=== PATIENT | female | born 1940 | race Caucasian/White ===

== ENCOUNTER 2016-12-16 03:00 | Inpatient (IN) | payer OTHER ==
--- NOTE | 2016-12-16 03:01 | PDOC ---
History of Present Illness - General History Source: Patient, Family Exam Limitations: No Limitations - History of Present Illness Initial Comments: 12/16/16 03:10 The patient is a 76 year old female with history of hypertension, diabetes, carotid stenosis, and cigarette smoking brought in by EMS from home for sudden onset shortness of breath that began tonight just prior to ED arrival. EMS was activated and the patient was placed on BIPAP. O2 sat on BIPAP is 81L on ED arrival. No fever or chills. No chest pain or lightheadedness. No abdominal pain , vomiting, or diarrhea. Patient is not able to provide remainder of history secondary to clinical condition. PCP: Dr. Bharathi Gillette Bi Lead: Dr. Ghosh <Jenifer Mederos - Last Filed: 12/16/16 04:33> - General History Source: Family <Tello Leonard - Last Filed: 12/16/16 05:01> - General Stated Complaint: DIFFICULTY BREATHING Time Seen by Provider: 12/16/16 03:01 Past History <Jenifer Mederos - Last Filed: 12/16/16 04:33> - Psycho/Social/Smoking Cessation Hx Anxiety: No Smoking History: Current some day smoker Number of Cigarettes Smoked Daily: 2 <Tello Leonard - Last Filed: 12/16/16 05:01> - Past Medical History Allergies/Adverse Reactions: Allergies Allergy/AdvReac Type Severity Reaction Status Date / Time No Known Allergies Allergy Verified 03/11/14 09:18 Home Medications: Ambulatory Orders Hydralazine HCl 10 mg PO DAILY 12/16/16 Losartan 50Mg/Hctz 12.5MG [Hyzaar -] 1 tab PO DAILY 12/16/16 Metoprolol Succinate [Toprol Xl -] 25 mg PO DAILY 12/16/16 Omeprazole 10 mg PO DAILY 12/16/16 Review of Systems - Review of Systems Able to Perform ROS?: No Comments:: 12/16/16 03:13 Patient is unable to provide ROS secondary to clinical condition. <Jenifer Mederos - Last Filed: 12/16/16 04:33> *Physical Exam - Vital Signs Last Vital Signs Temp Pulse Resp BP Pulse Ox 116 H 45 H 195/110 81 L 12/16/16 03:07 12/16/16 03:07 12/16/16 03:07 12/16/16 03:07 - Physical Exam Comments: 12/16/16 03:13 GENERAL: Awake, alert, and fully oriented. Somnolent. In respiratory distress. Not answering questions. HEAD: No signs of trauma EYES: PERRLA, EOMI, sclera anicteric, conjunctiva clear ENT: Auricles normal inspection, hearing grossly normal, nares patent, oropharynx clear without exudates. Moist mucosa NECK: Normal ROM, supple, no lymphadenopathy, JVD, or masses LUNGS: Breathing with supraclavicular contractions. Diffuse bilateral rales. HEART: Regular rate and rhythm, normal S1 and S2, no murmurs, rubs or gallops ABDOMEN: Soft, nontender, normoactive bowel sounds. No guarding, no rebound. No masses EXTREMITIES: Normal range of motion, no edema. No clubbing or cyanosis. No cords, erythema, or tenderness NEUROLOGICAL: Cranial nerves II through XII grossly intact. Normal speech, normal gait SKIN: Warm, Dry, normal turgor, no rashes or lesions noted. <Jenifer Mederos - Last Filed: 12/16/16 04:33> Heart Score/ECG Review #1 12/16/16 03:30 EKG obtained 3:14. Sinus tachycardia at 109 bpm. Anteroseptal infarct, age undetermined. Abnormal EKG. <Jenifer Mederos - Last Filed: 12/16/16 04:33> ED Treatment Course - LABORATORY CBC & Chemistry Diagram: 12/16/16 03:00 12/16/16 03:00 <Jenifer Mederos - Last Filed: 12/16/16 04:33> - LABORATORY CBC & Chemistry Diagram: 12/16/16 03:00 12/16/16 03:00 <Tello Leonard - Last Filed: 12/16/16 05:01> Medical Decision Making - Critical Care Time Total Critical Care Time (minutes): 35 Critical Care Statement: The care of this patient involved high complexity decision making to prevent further life threatening deterioration of the patient 's condition and/or to evalute & treat vital organ system(s) failure or risk of failure. - Medical Decision Making 12/16/16 04:00. My preliminary chest x-ray interpretation shows bilateral pulmonary congestion, increased markings, and cardiomegaly. Paged [facility] regarding admission. 12/16/16 04:33 Case discussed with patient's PCP, Dr. Turner Gillette, who requested the patient be admitted under Dr. Dowd. Placed call to Dr. Dowd, who agreed to admission. <Jenifer Mederos - Last Filed: 12/16/16 04:33> - Medical Decision Making 12/16/16 04:23 Dr. Leonard: The scribe's documentation has been prepared under my direction and personally reviewed by me in its entirery. I confirm that the note above accurately reflects all work, treatment, procedures, and medical decision making performed by me. 12/16/16 04:23 Pt presented acutely SOB. Clinically in CHF. No previous history of CHF. Troponin 0.02. Pt given a total of 100mg Lasix. Pt starting to diuresis. Spoke to pt pcp. Asked to admit pt to ICU. 12/16/16 05:00 Spoke to Carli Grande NP. There is a bed available in ICU <Tello Leonard - Last Filed: 12/16/16 05:01> *DC/Admit/Observation/Transfer - Attestations Scribe Attestion: 12/16/16 03:15 Documentation prepared by Jenifer Mederos, acting as medical historian for Tello Leonard DO. <Jenifer Mederos - Last Filed: 12/16/16 04:33> - Discharge Dispostion Admit: Yes <Tello Leonard - Last Filed: 12/16/16 05:01> Diagnosis at time of Disposition: CHF (congestive heart failure) Qualifiers: Congestive heart failure type: unspecified congestive heart failure type Congestive heart failure chronicity: acute Qualified Code(s): I50.9 - Heart failure, unspecified Dyspnea Qualifiers: Dyspnea type: shortness of breath Qualified Code(s): R06.02 - Shortness of breath - Referrals Referrals: Bharathi Gillette MD [Primary Care Provider] -
[2016-12-16] MEDS ORDERED: FUROSEMIDE 40 MG/4 ML INJECTABLE VIAL IVPUSH ONE ×2 (03:06→04:01)
[2016-12-16] MEDS ORDERED: FUROSEMIDE 40 MG/4 ML INJECTABLE VIAL ONE ×2 (03:06→04:02)
[2016-12-16] MEDS ORDERED: NITROGLYCERIN 2% OINTMENT - 1GM PACKET TD ONE (03:06)
[2016-12-16 03:15] LABS: BASOPHIL 0.8 % (0-2.0); EOSINOPHIL 1.6 % (0-4.5); MCH 29.4 pg (25.7-33.7); MCHC 31.8 g/dl (32.0-36.0); MEAN CELL VOLUME 92.5 fl (80-96); MEAN PLT VOLUME 8.6 fl (7.5-11.1); NEUTROPHILS 46.7 % (42.8-82.8); PLATELET COUNT 212 K/MM3 (134-434); RDW 15.5 % (11.6-15.6); WHITE BLOOD COUNT 13.9 K/mm3 (4.0-10.0)
[2016-12-16 03:25] LABS: INR 1.03 (0.82-1.09); PROTHROMBIN TIME (PATIENT) 11.3 SEC (9.98-11.88)
[2016-12-16 03:28] LABS: URINE APPEARANCE CLEAR; URINE BILIRUBIN NEGATIVE (NEGATIVE); URINE BLOOD NEGATIVE (NEGATIVE); URINE COLOR LTYELLOW; URINE GLUCOSE (UA) NEGATIVE (NEGATIVE); URINE KETONE NEGATIVE (NEGATIVE); URINE LEUK ESTERASE NEGATIVE (NEGATIVE); URINE NITRITE NEGATIVE (NEGATIVE); URINE UROBILINOGEN NEGATIVE E.U./dl (0.2-1.0)
[2016-12-16 03:40] LABS: URINE PROTEIN 3+ (NEGATIVE)
[2016-12-16 03:41] LABS: ALBUMIN 3.4 g/dl (3.4-5.0); ANION GAP 12 (8-16); BILIRUBIN,TOTAL 0.4 mg/dL (0.2-1.0); CO2 24 mmol/L (21-32); CREATININE 1.1 mg/dL (0.55-1.02); GLUCOSE,RANDOM 220 mg/dL (74-106); MAGNESIUM 1.5 mg/dL (1.8-2.4); SGOT/AST 51 U/L (15-37); SGPT/ALT 40 U/L (12-78); TOT PROT 6.9 g/dl (6.4-8.2)
[2016-12-16 03:42] LABS: URINE HYALINE CAST 1 /lpf; URINE MUCUS RARE; URINE RBC 7 /hpf (0-3); URINE WBC 14 /hpf (3-5)
[2016-12-16 03:44] LABS: ALK PHOS 58 U/L (45-117); TROPONIN I 0.02 ng/ml (0.00-0.05)
[2016-12-16 03:49] LABS: ARTERIAL BLD GAS O2 SATURATION 99.3 % (90-98.9); ARTERIAL BLOOD GAS BASE EXCESS -3.8 meq/l (-2-2); ARTERIAL BLOOD GAS HCO3 22.5 meq/L (22-26); ARTERIAL BLOOD GAS pH 7.29 (7.35-7.45)
[2016-12-16 03:51] LABS: ALLENS TEST POSITIVE; ART PUNCT SITE RIGHT BRACHIAL; LPM/O2% 100; METHEMOGLOBIN 0.8 % (0.4-1.5); PT. ON O2? YES
[2016-12-16 03:52] LABS: TYPE OF O2 BIPAP; VENT RATE 14; VT/PRESS 16/4
[2016-12-16 03:54] LABS: ACETONE SERUM NEGATIVE (NEGATIVE)
[2016-12-16] MEDS ORDERED: ALBUTEROL SO4 0.083% IH SOL 2.5 MG/3 ML VIAL.NEB. NEB PRN (05:50)
[2016-12-16 06:45] VITALS: BMI 34.6
[2016-12-16] MEDS ORDERED: MAGNESIUM SULF 50% (8.12 MEQ/2 ML-1 GM VIAL) IVPB ONE (09:09)
[2016-12-16] MEDS ORDERED: PNEUMOC 13-VAL CONJ-DIP CRM/PF 0.5 ML DISP.SYRIN IM ONE (09:29)
[2016-12-16] MEDS ORDERED: ALBUTEROL SO4 2.5/IPRATROPIUM 0.5 INH SOL 3 ML VIAL.NEB. NEB SCH (10:00)
[2016-12-16] MEDS ORDERED: FUROSEMIDE 40 MG/4 ML INJECTABLE VIAL IVPUSH SCH (10:00)
--- NOTE | 2016-12-16 11:34 | PN ---
Teaching Attending Note Name of Resident: Oni Medina ATTENDING PHYSICIAN STATEMENT I saw and evaluated the patient. I reviewed the resident's note and discussed the case with the resident. I agree with the resident's findings and plan as documented. SUBJECTIVE: 76 F hypertension, diabetes, carotid stenosis, and cigarette smoking. According to daughter, patient had a recent URI and was prescribed Augmentin, which she only took for a few days. Brought in by EMS from home due to sudden onset shortness of breath. Due to severe respiratory distress she required treatment with NIPPV, which stabilized her breathing. No travel history or sick contacts. No fever or chills. No chest pain abdominal pain, vomiting, or diarrhea. Intake & Output 12/13/16 12/14/16 12/15/16 12/16/16 22:59 23:59 23:59 23:59 Output Total 850 Balance -850 Weight 189 lb 8 oz Last Vital Signs Temp Pulse Resp BP Pulse Ox 98.2 F 70 20 136/49 98 12/16/16 10:00 12/16/16 10:00 12/16/16 10:00 12/16/16 10:00 12/16/16 09:14 Active Medications Albuterol Sulfate (Ventolin 0.083% Nebulizer Soln -) 1 amp NEB Q4H PRN PRN Reason: SHORT OF BREATH/WHEEZING Albuterol/Ipratropium (Duoneb -) 1 amp NEB BID [facility] Last Admin: 12/16/16 09:14 Dose: 1 amp Furosemide (Lasix Injection -) 40 mg IVPUSH DAILY [facility] Last Admin: 12/16/16 09:43 Dose: 40 mg Pneumococcal 13-Valent Conj Vacc (Prevnar 13 Syringe -) 0.5 ml IM .ONCE ONE Stop: 12/16/16 09:30 GENERAL: Awake, alert, on NIPPV HEAD: No signs of trauma EYES: PERRLA, EOMI, sclera anicteric, conjunctiva clear ENT: Moist mucosa NECK: Normal ROM, supple, no lymphadenopathy, JVD, or masses LUNGS: Bibasilar rales, no wheezing HEART: Regular rate and rhythm, normal S1 and S2, no murmurs, rubs or gallops ABDOMEN: Soft, nontender, normoactive bowel sounds. No guarding, no rebound. No masses EXTREMITIES: Normal range of motion, no edema. No clubbing or cyanosis. No cords, erythema, or tenderness NEUROLOGICAL: awake and alert, non-focal SKIN: Warm, Dry, normal turgor, no rashes or lesions noted. IMP: Acute Hypoxemic/Hypercapneic Respiratory Failure due to Decompensated CHF Recent URI -> probably viral Do not suspect PNA Above history PLAN: Lasix NIPPV as needed BD TX Monitor off ABX for now O2 as needed Daily weight Strict I&O Follow cardiac enzymes Telemetry monitoring Thank you. Dr Parekh CCTime 35"
[2016-12-16] MEDS ORDERED: HEPARIN NA (PORCINE) 5,000 UNITS/ML 1ML VIAL SQ SCH (11:45)
[2016-12-16] MEDS: PANTOPRAZOLE 40 MG TABLET (FP) PO SCH (12:19)
--- NOTE | 2016-12-16 12:35 | EKG ---
Test Reason : Blood Pressure : / mmHG Vent. Rate : 109 BPM Atrial Rate : 109 BPM P-R Int : 162 ms QRS Dur : 102 ms QT Int : 350 ms P-R-T Axes : 070 080 050 degrees QTc Int : 471 ms SINUS TACHYCARDIA ANTEROSEPTAL INFARCT , AGE UNDETERMINED ABNORMAL ECG WHEN COMPARED WITH ECG OF 10-NOV-2005 08:27, VENT. RATE HAS INCREASED BY 55 BPM ANTEROSEPTAL INFARCT IS NOW PRESENT ST ELEVATION NOW PRESENT IN ANTERIOR LEADS Confirmed by LUIS MARSHALL MD ([id number]) on 12/16/2016 12:35:08 PM Referred By: Confirmed By:LUIS MARSHALL MD
--- NOTE | 2016-12-16 12:52 | CONSULT ---
Addendum entered and electronically signed by Oni Medina RES 12/16/16 14:39 : case discussed with cardiology patient has acute diastolic/systolic heart failure with subendocardial ischemic injury. get TSH, lipid profile, trend trop i continue with aspirin, lipitor, toprol xl, lasix. patient is responding to lasix. Breathing has improved. Addendum entered and electronically signed by Oni Medina RES 12/16/16 14:19 : Trop I elevated will give her 324mg aspirin. start her on heparin drip and nitro drip will give her lipitor 40mg trend trop I case discussed with Dr Dowd Original Note: Consultation: REQUESTING PROVIDER: CONSULT REQUEST: We have been asked to medically evaluate this patient for ( specify). HISTORY OF PRESENT ILLNESS: 76 F hypertension, diabetes, carotid stenosis, and cigarette smoking. Came to ed because of shortness of breath. as per daughter pateint has URI from 2 week. but yesterday her difficulty incresed and she was brought to ED. In ED patient received 100mg of Lasix and was started on bipap. Now patient states that she feels better and her breathing has improved. Patient was taken off from BIPAP and started on nasal canula. Maintaing a saturation of 99 % on 3 No fever or chills. No chest pain abdominal pain, vomiting, or diarrhea. PMH; HTN, HLD, carotid stenosis REVIEW OF SYSTEMS: CONSTITUTIONAL: Absent: fever, chills, diaphoresis, HEENT: Absent: rhinorrhea, nasal congestion, throat pain, throat swelling, difficulty swallowing, mouth swelling, ear pain, eye pain, visual changes CARDIOVASCULAR: Absent: chest pain, syncope, palpitations, irregular heart rate, lightheadedness , peripheral edema RESPIRATORY: Present cough : Absent cough, dyspnea with exertion, orthopnea, wheezing, stridor, hemoptysis GASTROINTESTINAL: Absent: abdominal pain, abdominal distension, nausea, vomiting, diarrhea, constipation, GENITOURINARY: Absent: dysuria, frequency, urgency, MUSCULOSKELETAL: Absent: myalgia, arthralgia, joint swelling, SKIN: Absent: itching, pallor HEMATOLOGIC/IMMUNOLOGIC: Absent: easy bleeding, easy bruising, ENDOCRINE: Absent: unexplained weight gain, unexplained weight loss, h NEUROLOGIC: Absent: headache, focal weakness or paresthesias, dizziness, PSYCHIATRIC: Absent: anxiety, depression, suicidal or homicidal ideation, hallucinations. PHYSICAL EXAMINATION Vital Signs - 24 hr 12/16/16 12/16/16 12/16/16 05:33 06:15 06:37 Temperature 97.3 F L 97 F L Pulse Rate 75 Pulse Rate [ 77 Apical] Respiratory 22 19 Rate Blood Pressure 153/61 Blood Pressure 127/55 [Left Arm] O2 Sat by Pulse 100 100 98 Oximetry (%) 12/16/16 12/16/16 12/16/16 08:00 09:00 09:14 Temperature Pulse Rate 72 68 Pulse Rate [ Apical] Respiratory 18 Rate Blood Pressure 150/67 Blood Pressure [Left Arm] O2 Sat by Pulse 98 98 Oximetry (%) 12/16/16 12/16/16 10:00 11:43 Temperature 98.2 F Pulse Rate 70 66 Pulse Rate [ Apical] Respiratory 20 16 Rate Blood Pressure 136/49 129/69 Blood Pressure [Left Arm] O2 Sat by Pulse 98 Oximetry (%) GENERAL: Awake, alert, and fully oriented, in no acute distress. HEAD: Normal with no signs of trauma. EYES: Pupils equal, round and reactive to light, extraocular movements intact, EARS, NOSE, THROAT: Moist mucous membranes. NECK: Normal range of motion, supple without lymphadenopathy, JVD distended , or masses. LUNGS: Breath sounds equal, clear to auscultation bilaterally. No wheezes, and mild bibasilar rales No accessory muscle use. HEART: s1s2 normal ABDOMEN: Soft, nontender, not distended, normoactive bowel sounds, no guarding, no rebound, no masses. hepetojuglar reflex present MUSCULOSKELETAL: No CVA tenderness. UPPER EXTREMITIES: 2+ pulses, warm, well-perfused. No cyanosis. Cap refill <2 seconds. No peripheral edema. LOWER EXTREMITIES: 2+ pulses, warm, well-perfused. No calf tenderness. No peripheral edema. NEUROLOGICAL: Cranial nerves II-XII grossly intact PSYCHIATRIC: Cooperative. Good eye contact. Appropriate mood and affect. SKIN: Warm, dry, normal turgor, Active Medications Generic Name Dose Route Start Last Admin Trade Name Freq PRN Reason Stop Dose Admin Albuterol Sulfate 1 amp 12/16/16 05:50 Ventolin 0.083% Nebulizer Soln - NEB Q4H PRN SHORT OF BREATH/WHEEZING Albuterol/Ipratropium 1 amp 12/16/16 14:00 Duoneb - NEB QIDR [facility] Chlorhexidine Gluconate 1 applic 12/16/16 22:00 Hibiclens For Decolonization - TP HS [facility] Furosemide 40 mg 12/16/16 14:00 Lasix Injection - IVPUSH BIDLASIX [facility] Heparin Sodium (Porcine) 5,000 unit 12/16/16 11:45 12/16/16 12:19 Heparin - SQ 5,000 unit BID [facility] Administration Insulin Aspart 0 units 12/16/16 16:30 Novolog Vial SQ ACHS [facility] Protocol Losartan Potassium 50 mg 12/17/16 10:00 Cozaar - PO DAILY [facility] Metoprolol Succinate 25 mg 12/17/16 10:00 Toprol Xl - PO DAILY [facility] Mupirocin 1 applic 12/16/16 22:00 Bactroban Ointment (For Decolonization) - NS 12/21/16 21:59 BID [facility] Pantoprazole Sodium 40 mg 12/16/16 11:45 12/16/16 12:19 Protonix - PO 40 mg DAILY [facility] Administration Pneumococcal 13-Valent Conj Vacc 0.5 ml 12/16/16 09:29 Prevnar 13 Syringe - IM 12/16/16 09:30 .ONCE ONE ASSESSMENT/PLAN: Acute Hypoxemic/Hypercapneic Respiratory Failure due to Decompensated CHF IV lasix BIPAP as needed maintaing a sturation of 99% on 3L monitor vitals monitor daily weight monitor intake/ output oxygen as needed follow ECHO, cardiac enzymes Cardiology consult HTN on metoprolol and losartan Fluid; orally allowed electrolyte: hypomagnesemia, IV 2gm mg given nutrition: salt restricted diet DVT pro on heparin gi pro ; on protonix Dispo: admit in icu Visit type - Emergency Visit Emergency Visit: Yes ED Registration Date: 12/16/16 Care time: The patient presented to the Emergency Department on the above date and was hospitalized for further evaluation of their emergent condition. - New Patient This patient is new to me today: Yes Date on this admission: 12/16/16 - Critical Care Critical Care patient: Yes Total Critical Care Time (in minutes): 45 Critical Care Statement: The care of this patient involved high complexity decision making to prevent further life threatening deterioration of the patient 's condition and/or to evalute & treat vital organ system(s) failure or risk of failure.
[2016-12-16] MEDS: ALBUTEROL SO4 2.5/IPRATROPIUM 0.5 INH SOL 3 ML VIAL.NEB. NEB SCH ×2 (13:51→18:07)
[2016-12-16 14:01] LABS: TROPONIN I 1.01 ng/ml (0.00-0.05)
[2016-12-16] MEDS ORDERED: ASPIRIN 81 MG CHEWABLE TABLETS PO ONE (14:13)
[2016-12-16] MEDS ORDERED: HEPARIN INFUSION - 500 ML IVPB SCH (14:15)
[2016-12-16] MEDS ORDERED: HEPARIN NA (PORCINE) 5,000 UNITS/ML 1ML VIAL IVPUSH PRN ×2 (14:15)
[2016-12-16] MEDS ORDERED: ATORVASTATIN CA 40 MG TABLET (FP) PO ONE (14:23)
[2016-12-16] MEDS: FUROSEMIDE 40 MG/4 ML INJECTABLE VIAL IVPUSH SCH (14:31)
[2016-12-16] MEDS ORDERED: METOPROLOL SUCCINATE 25 MG TAB.SR.24H (FP) ONE (14:49)
[2016-12-16] MEDS ORDERED: METOPROLOL SUCCINATE 25 MG TAB.SR.24H (FP) PO ONE (14:52)
[2016-12-16 15:03] LABS: MAGNESIUM 2.1 mg/dL (1.8-2.4)
[2016-12-16 15:26] LABS: INR 1.08 (0.82-1.09); PROTHROMBIN TIME (PATIENT) 11.9 SEC (9.98-11.88)
[2016-12-16 15:28] LABS: ACTIVATED PTT 25.8 SECONDS (26.9-34.4)
[2016-12-16 15:46] LABS: THYROID STIMULATING HORMONE 2.39 uIU/ml (0.358-3.74)
[2016-12-16] MEDS: INSULIN (NOVOLOG) ASPART 100 UNITS/ML 10ML VIAL SQ SCH ×3 (17:46→21:39)
--- NOTE | 2016-12-16 19:20 | HP ---
Admitting History and Physical - Primary Care Physician PCP: Christiano Pichardo - Admission Chief Complaint: DYSPNEA/CHEST PAIN History of Present Illness: The patient is a 76 year old female with history of hypertension, diabetes, carotid stenosis, and cigarette smoking brought in by EMS from home for sudden onset shortness of breath that began tonight just prior to ED arrival. EMS was activated and the patient was placed on BIPAP. O2 sat on BIPAP is 81L on ED arrival. No fever or chills. POSITIVE chest pain No lightheadedness. No abdominal pain, vomiting, or diarrhea. Patient is not able to provide remainder of history secondary to clinical condition. History Source: Patient, Medical Record - Past Medical History Cardiovascular: Yes: Aortic Stenosis, CAD, HTN, Other - Smoking History Smoking history: Current some day smoker Aproximately how many cigarettes per day: 2 - Alcohol/Substance Use Hx Alcohol Use: No Home Medications - Allergies Allergies/Adverse Reactions: Allergies Allergy/AdvReac Type Severity Reaction Status Date / Time No Known Allergies Allergy Verified 03/11/14 09:18 - Home Medications Home Medications: Ambulatory Orders Hydralazine HCl 10 mg PO DAILY 12/16/16 Losartan 50Mg/Hctz 12.5MG [Hyzaar -] 1 tab PO DAILY 12/16/16 Metoprolol Succinate [Toprol Xl -] 25 mg PO DAILY 12/16/16 Omeprazole 10 mg PO DAILY 12/16/16 Review of Systems - Review of Systems Constitutional: reports: Weakness Eyes: reports: No Symptoms HENT: reports: No Symptoms Neck: reports: No Symptoms Cardiovascular: reports: Chest Pain, Shortness of Breath Respiratory: reports: Cough, SOB Gastrointestinal: reports: No Symptoms Genitourinary: reports: No Symptoms Musculoskeletal: reports: No Symptoms Integumentary: reports: No Symptoms Neurological: reports: No Symptoms Endocrine: reports: No Symptoms Hematology/Lymphatic: reports: No Symptoms Physical Examination Vital Signs: Vital Signs Temperature 97.6 F 12/16/16 18:00 Pulse Rate 68 12/16/16 18:00 Respiratory Rate 18 12/16/16 18:00 Blood Pressure 140/75 12/16/16 18:00 O2 Sat by Pulse Oximetry (%) 98 12/16/16 10:00 Constitutional: Yes: Moderate Distress Eyes: Yes: WNL HENT: Yes: WNL Neck: Yes: WNL Cardiovascular: Yes: WNL, Murmur Respiratory: Yes: SOB on Exertion Gastrointestinal: Yes: WNL Breast(s): Yes: WNL Musculoskeletal: Yes: WNL Extremities: Yes: WNL Edema: No Peripheral Pulses WNL: Yes Integumentary: Yes: WNL Wound/Incision: Yes: Clean/Dry Neurological: Yes: WNL ...Motor Strength: WNL Psychiatric: Yes: WNL Problem List - Problems (1) CHF (congestive heart failure) Code(s): I50.9 - HEART FAILURE, UNSPECIFIED Qualifiers: Congestive heart failure type: unspecified congestive heart failure type Congestive heart failure chronicity: acute Qualified Code(s): I50.9 - Heart failure, unspecified (2) Dyspnea Code(s): R06.00 - DYSPNEA, UNSPECIFIED Qualifiers: Dyspnea type: shortness of breath Qualified Code(s): R06.02 - Shortness of breath Assessment/Plan FAMILY WOULD LIKE TO HAVE THEIR MOM TRANSFERRED TO A [facility]ERTI[facility] CENTER THEY PREFER [facility] IN [place]. I DISCUSSED WITH THE ATTENDING DR CHRISTIANO PICHARDO WHO IS IN AGREEMENT. I SPOKE WITH DR MEMO GORDON FROM [facility] AND HE WILL TRY TO TRANSFER THE PATIENT FOR FURTHER WORKUP. I SPOKE TO THE NURSE IN THE ICU BECAUSE CARDIOLOGY FROM DR DE'S OFFICE HAS NOT SEEN HER YET FOR INITIAL CONSULTATION SO WE CAN NOTIFY THEM THAT SHE WOULD LIKE TO BE TRANSFERRED. MONITOR VITALS ECHO DVT PROPHYLAXIS NITRO DRIP CARDIAC ENZYMES TO MONITOR
[2016-12-16] MEDS ORDERED: BENZOCAINE/MENTH/CETYLPYRD CL 1 EACH LOZENGE MM PRN (21:18)
[2016-12-16] MEDS: HEPARIN NA (PORCINE) 5,000 UNITS/ML 1ML VIAL SQ SCH (21:29)
[2016-12-16] MEDS: MUPIROCIN 2% TOPICAL OINTMENT FOR DECOLONIZATION NS SCH (21:29)
[2016-12-16] MEDS ORDERED: CHLORHEXIDINE GLUCONATE 4% CLEANSER FOR DECOLONIZATION TP SCH (22:00)
[2016-12-16 23:58] LABS: TROPONIN I 0.5 ng/ml (0.00-0.05)
[2016-12-17] MEDS: ALBUTEROL SO4 2.5/IPRATROPIUM 0.5 INH SOL 3 ML VIAL.NEB. NEB SCH ×2 (00:05→06:40)
[2016-12-17] MEDS ORDERED: HEMOQUE TEST 1 EACH EACH ONE (05:15)
[2016-12-17 06:03] LABS: BASOPHIL 0.4 % (0-2.0); EOSINOPHIL 1.1 % (0-4.5); MCH 30.7 pg (25.7-33.7); MEAN CELL VOLUME 90.4 fl (80-96); MEAN PLT VOLUME 9.1 fl (7.5-11.1); NEUTROPHILS 73.6 % (42.8-82.8); PLATELET COUNT 150 K/MM3 (134-434)
[2016-12-17 06:15] LABS: BILIRUBIN,TOTAL 0.4 mg/dL (0.2-1.0); MAGNESIUM 1.8 mg/dL (1.8-2.4); PHOSPHOROUS 3.6 mg/dL (2.5-4.9); TOT PROT 5.9 g/dl (6.4-8.2)
[2016-12-17 06:18] LABS: TROPONIN I 0.41 ng/ml (0.00-0.05)
[2016-12-17] MEDS: FUROSEMIDE 40 MG/4 ML INJECTABLE VIAL IVPUSH SCH (07:21)
[2016-12-17] MEDS: INSULIN (NOVOLOG) ASPART 100 UNITS/ML 10ML VIAL SQ SCH ×2 (07:21→12:15)
[2016-12-17 07:43] LABS: ARTERIAL BLD GAS O2 SATURATION 97.4 % (90-98.9); ARTERIAL BLOOD GAS BASE EXCESS 5.1 meq/l (-2-2); ARTERIAL BLOOD GAS PO2 91.5 mmHg (70-100); ARTERIAL BLOOD GAS pH 7.45 (7.35-7.45)
[2016-12-17 07:44] LABS: ALLENS TEST POSITIVE; ART PUNCT SITE RIGHT RADIAL; LPM/O2% 3 LPM; PT. ON O2? YES
[2016-12-17 07:45] LABS: ARTERIAL BLOOD GAS HCO3 29.3 meq/L (22-26)
--- NOTE | 2016-12-17 09:25 | PN ---
Progress Note, Physician History of Present Illness: C/O COUGH SOB BETTER NO CP THIS AM NOTED FAMILY WANT PT TRANSFERRED TO [facility] AWARE--INFO GIVEN BY RESIDENT - Current Medication List Current Medications: Active Medications Albuterol Sulfate (Ventolin 0.083% Nebulizer Soln -) 1 amp NEB Q4H PRN PRN Reason: SHORT OF BREATH/WHEEZING Albuterol/Ipratropium (Duoneb -) 1 amp NEB QIDR [facility] Last Admin: 12/17/16 06:40 Dose: 1 amp Aspirin (Asa -) 81 mg PO DAILY [facility] Atorvastatin Calcium (Lipitor -) 40 mg PO HS [facility] Benzocaine/Menthol (Cepacol Lozenge -) 1 each MM PRN PRN PRN Reason: SORE THROAT Last Admin: 12/16/16 22:02 Dose: 1 each Chlorhexidine Gluconate (Hibiclens For Decolonization -) 1 applic TP HS [facility] Last Admin: 12/16/16 21:29 Dose: 1 applic Furosemide (Lasix Injection -) 40 mg IVPUSH BIDLASIX [facility] Last Admin: 12/17/16 07:21 Dose: 40 mg Heparin Sodium (Porcine) (Heparin -) 5,000 unit SQ BID [facility] Last Admin: 12/16/16 21:29 Dose: 5,000 unit Insulin Aspart (Novolog Vial) 0 units SQ ACHS [facility] PRN Reason: Protocol Last Admin: 12/17/16 07:21 Dose: Not Given Losartan Potassium (Cozaar -) 50 mg PO DAILY [facility] Metoprolol Succinate (Toprol Xl -) 25 mg PO DAILY [facility] Mupirocin (Bactroban Ointment (For Decolonization) -) 1 applic NS BID [facility] Stop: 12/21/16 21:59 Last Admin: 12/16/16 21:29 Dose: 1 applic Pantoprazole Sodium (Protonix -) 40 mg PO DAILY [facility] Last Admin: 12/16/16 12:19 Dose: 40 mg Pneumococcal 13-Valent Conj Vacc (Prevnar 13 Syringe -) 0.5 ml IM .ONCE ONE Stop: 12/16/16 09:30 - Objective Vital Signs: Vital Signs Temperature 98.1 F 12/17/16 08:00 Pulse Rate 79 12/17/16 08:00 Respiratory Rate 18 12/17/16 08:00 Blood Pressure 153/55 12/17/16 08:00 O2 Sat by Pulse Oximetry (%) 98 12/16/16 21:00 Cardiovascular: Yes: Regular Rate and Rhythm Respiratory: Yes: Diminished, On Nasal O2 Gastrointestinal: Yes: Normal Bowel Sounds, Soft Edema: No Labs: CBC, BMP 12/17/16 05:10 12/17/16 05:10 INR, PTT INR 1.08 (0.82-1.09) 12/16/16 14:45 <Christiano Dowd - Last Filed: 12/17/16 09:39> - Current Medication List Current Medications: Active Medications Albuterol Sulfate (Ventolin 0.083% Nebulizer Soln -) 1 amp NEB Q4H PRN PRN Reason: SHORT OF BREATH/WHEEZING Albuterol/Ipratropium (Duoneb -) 1 amp NEB QIDR [facility] Last Admin: 12/17/16 06:40 Dose: 1 amp Aspirin (Asa -) 81 mg PO DAILY [facility] Last Admin: 12/17/16 10:06 Dose: 81 mg Atorvastatin Calcium (Lipitor -) 40 mg PO HS [facility] Benzocaine/Menthol (Cepacol Lozenge -) 1 each MM PRN PRN PRN Reason: SORE THROAT Last Admin: 12/16/16 22:02 Dose: 1 each Chlorhexidine Gluconate (Hibiclens For Decolonization -) 1 applic TP HS [facility] Last Admin: 12/16/16 21:29 Dose: 1 applic Furosemide (Lasix Injection -) 40 mg IVPUSH BIDLASIX [facility] Last Admin: 12/17/16 07:21 Dose: 40 mg Heparin Sodium (Porcine) (Heparin -) 5,000 unit SQ BID [facility] Last Admin: 12/17/16 10:06 Dose: 5,000 unit Insulin Aspart (Novolog Vial) 0 units SQ ACHS [facility] PRN Reason: Protocol Last Admin: 12/17/16 12:15 Dose: Not Given Losartan Potassium (Cozaar -) 50 mg PO DAILY [facility] Last Admin: 12/17/16 10:06 Dose: 50 mg Metoprolol Succinate (Toprol Xl -) 25 mg PO DAILY [facility] Last Admin: 12/17/16 10:06 Dose: 25 mg Mupirocin (Bactroban Ointment (For Decolonization) -) 1 applic NS BID [facility] Stop: 12/21/16 21:59 Last Admin: 12/17/16 10:07 Dose: 1 applic Pantoprazole Sodium (Protonix -) 40 mg PO DAILY [facility] Last Admin: 12/17/16 10:06 Dose: 40 mg Pneumococcal 13-Valent Conj Vacc (Prevnar 13 Syringe -) 0.5 ml IM .ONCE ONE Stop: 12/16/16 09:30 - Objective Vital Signs: Vital Signs Temperature 98 F 12/17/16 12:00 Pulse Rate 84 12/17/16 12:00 Respiratory Rate 22 12/17/16 12:00 Blood Pressure 149/47 12/17/16 12:00 O2 Sat by Pulse Oximetry (%) 99 12/17/16 11:43 Constitutional: Yes: No Distress, Calm Labs: CBC, BMP 12/17/16 05:10 12/17/16 05:10 INR, PTT INR 1.08 (0.82-1.09) 12/16/16 14:45 <Hai Medeiros - Last Filed: 12/17/16 12:28> Problem List - Problems (1) CHF (congestive heart failure) Assessment/Plan: IV LASIX ECHO ASA Code(s): I50.9 - HEART FAILURE, UNSPECIFIED Qualifiers: Congestive heart failure type: unspecified congestive heart failure type Congestive heart failure chronicity: acute Qualified Code(s): I50.9 - Heart failure, unspecified (2) Dyspnea Assessment/Plan: IMPROVING ON DIURETICS NEBS Code(s): R06.00 - DYSPNEA, UNSPECIFIED Qualifiers: Dyspnea type: shortness of breath Qualified Code(s): R06.02 - Shortness of breath (3) Diabetes Assessment/Plan: BGM Code(s): E11.9 - TYPE 2 DIABETES MELLITUS WITHOUT COMPLICATIONS (4) HTN (hypertension) Assessment/Plan: MONITOR ON CURRENT MEDS Code(s): I10 - ESSENTIAL (PRIMARY) HYPERTENSION (5) CAD (coronary artery disease) Assessment/Plan: STATIN B-JULIETH ASA Code(s): I25.10 - ATHSCL HEART DISEASE OF [place] CORONARY ARTERY W/O ANG PCTRS (6) Carotid stenosis Assessment/Plan: CAROTID DUPLEX STATIN Code(s): I65.29 - OCCLUSION AND STENOSIS OF UNSPECIFIED CAROTID ARTERY (7) Aortic valve disease Assessment/Plan: ECHO Code(s): I35.9 - NONRHEUMATIC AORTIC VALVE DISORDER, UNSPECIFIED (8) Troponin level elevated Assessment/Plan: TRENDING DOWN CARDIO--FOR TRANSFER Code(s): R74.8 - ABNORMAL LEVELS OF OTHER SERUM ENZYMES <Christiano Dowd - Last Filed: 12/17/16 09:39>
[2016-12-17] MEDS ORDERED: ASPIRIN 81 MG CHEWABLE TABLETS PO SCH (10:00)
[2016-12-17] MEDS ORDERED: METOPROLOL SUCCINATE 25 MG TAB.SR.24H (FP) PO SCH (10:00)
[2016-12-17] MEDS ORDERED: LOSARTAN POTASSIUM 50 MG TABLET (FP) PO SCH (10:00)
[2016-12-17] MEDS: HEPARIN NA (PORCINE) 5,000 UNITS/ML 1ML VIAL SQ SCH (10:06)
[2016-12-17] MEDS: PANTOPRAZOLE 40 MG TABLET (FP) PO SCH (10:06)
[2016-12-17] MEDS: MUPIROCIN 2% TOPICAL OINTMENT FOR DECOLONIZATION NS SCH (10:07)
--- NOTE | 2016-12-17 12:18 | CON.CARD ---
Consult Consult Specialty:: Cardiology Referred by:: Christiano Dowd MD Reason for Consultation:: Dyspnea, chest tightness - History of Present Illness Chief Complaint: Dyspnea, chest tightness History of Present Illness: 76 F hypertension, diabetes, carotid stenosis,tobacco abuse initially admitted with dyspnea, cough, chest tightness, acute hypoxic respiratory failure found to be in HFPEF with subendocardial ischemic injury, improved with NIPPV, O2, diuresis and afterload reduction. She is planned for transfer to [facility] per family request. She denies orthopnea, , palpitations, near or true syncope, PND or LE edema. - History Source History Provided By: Patient Limitations to Obtaining History: No Limitations - Past Medical History Cardio/Vascular: Yes: Aortic Stenosis, CAD, HTN, Other - Alcohol/Substance Use Hx Alcohol Use: No - Smoking History Smoking history: Current some day smoker Aproximately how many cigarettes per day: 2 Home Medications - Allergies Allergies/Adverse Reactions: Allergies Allergy/AdvReac Type Severity Reaction Status Date / Time No Known Allergies Allergy Verified 03/11/14 09:18 - Home Medications Home Medications: Ambulatory Orders Hydralazine HCl 10 mg PO DAILY 12/16/16 Losartan 50Mg/Hctz 12.5MG [Hyzaar -] 1 tab PO DAILY 12/16/16 Metoprolol Succinate [Toprol Xl -] 25 mg PO DAILY 12/16/16 Omeprazole 10 mg PO DAILY 12/16/16 Review of Systems - Review of Systems Cardiovascular: reports: Chest Pain, Shortness of Breath Respiratory: reports: Cough Vital Signs: Vital Signs Temperature 98.1 F 12/17/16 08:00 Pulse Rate 73 12/17/16 11:26 Respiratory Rate 18 12/17/16 08:00 Blood Pressure 153/55 12/17/16 08:00 O2 Sat by Pulse Oximetry (%) 99 12/17/16 11:26 Constitutional: Yes: No Distress, Calm Neck: Yes: Supple Respiratory: Yes: Regular, Diminished, On Nasal O2 Gastrointestinal: Yes: Normal Bowel Sounds, Soft, Abdomen, Obese Cardiovascular: Yes: Regular Rate and Rhythm JVD: No Carotid Bruit: No Heart Sounds: Yes: S1, S2 Murmur: Yes: Diastolic Murmur, Grade 1 Edema: Yes Edema: LLE: Trace, RLE: Trace - Other Data Labs, Other Data: CBC, BMP 12/17/16 05:10 12/17/16 05:10 INR, PTT INR 1.08 (0.82-1.09) 12/16/16 14:45 Troponin, BNP 12/16/16 12/16/16 12/16/16 12:41 17:00 23:00 Troponin I 1.01 H* 0.97 H* 0.50 H 12/17/16 05:10 Troponin I 0.41 H Troponin, BNP 12/16/16 12/16/16 12/16/16 12:41 17:00 23:00 Troponin I 1.01 H* 0.97 H* 0.50 H 12/17/16 05:10 Troponin I 0.41 H NSR @ 63 nonspec T wave changes Ejection Fraction %: LVEF > or = 40 % Imaging - Results Chest X-ray: Report Reviewed (CHF) Problem List - Problems (1) CAD (coronary artery disease) Code(s): I25.10 - ATHSCL HEART DISEASE OF [place] CORONARY ARTERY W/O ANG PCTRS Qualifiers: Coronary Disease-Associated Artery/Lesion type: tribal artery [place] vs. transplanted heart: tribal heart Associated angina: without angina Qualified Code(s): I25.10 - Atherosclerotic heart disease of [place] coronary artery without angina pectoris (2) Carotid stenosis Code(s): I65.29 - OCCLUSION AND STENOSIS OF UNSPECIFIED CAROTID ARTERY (3) Diabetes Code(s): E11.9 - TYPE 2 DIABETES MELLITUS WITHOUT COMPLICATIONS Qualifiers: Diabetes mellitus type: type 2 (4) Dyspnea Code(s): R06.00 - DYSPNEA, UNSPECIFIED Qualifiers: Dyspnea type: shortness of breath Qualified Code(s): R06.02 - Shortness of breath (5) HTN (hypertension) Code(s): I10 - ESSENTIAL (PRIMARY) HYPERTENSION Qualifiers: Hypertension type: essential hypertension Qualified Code(s): I10 - Essential (primary) hypertension (6) Acute diastolic CHF (congestive heart failure), NYHA class 3 Code(s): I50.31 - ACUTE DIASTOLIC (CONGESTIVE) HEART FAILURE (7) Subendocardial ischemia Code(s): I24.8 - OTHER FORMS OF ACUTE ISCHEMIC HEART DISEASE (8) Acute respiratory failure with hypoxia Code(s): J96.01 - ACUTE RESPIRATORY FAILURE WITH HYPOXIA (9) Aortic valve regurgitation, nonrheumatic Code(s): I35.1 - NONRHEUMATIC AORTIC (VALVE) INSUFFICIENCY Assessment/Plan 12/17/2016 Echo: Normal LV size and fxn, severe BHAVESH, mod TR, mild , mod-severe AR, mod MR, mod ao dilatation 1. Acute diastolic heart failure with hypoxic respiratory failure improving 2. CAD subendocardial ischemic injury 3. HTN/HCVD 4. Type 2 DM 5. chol 6. Mod-severe AR 7. Carotid stenosis P:1. IV diuresis with monitor diuretic response, renal fxn and electrolytes 2. Trops have peaked 3. Continue ASA 81 qd, Toprol XL 25 qd, losartan 50 qd, Lipitor with uptitration as hemodynamics tolerate 4. Plan for transfer to [facility] R&LHc once euvolemic 5. DVT/GI prophylaxic, thank you for consultative opportunity
[2016-12-17 12:21] VITALS: BP 149/47; PULSE 84; TEMP 98
--- NOTE | 2016-12-17 12:38 | PN ---
Physical Exam: SUBJECTIVE: Patient seen and examined, patient is sitting comfortably on couch. states her breathing has improved. Also reports cough is getting better. OBJECTIVE: Vital Signs Period Temp Pulse Resp BP Sys/Lin Pulse Ox Last 24 Hr 97.5 F-98.8 F 57-84 16-22 113-159/39-109 97-99 GENERAL: Awake, alert, and fully oriented, in no acute distress. HEAD: Normal with no signs of trauma. EYES: Pupils equal, round and reactive to light, extraocular movements intact, EARS, NOSE, THROAT: Moist mucous membranes. NECK: Normal range of motion, supple without lymphadenopathy, JVD distended , or masses. LUNGS: Breath sounds equal, clear to auscultation bilaterally. No wheezes, and minimal bibasilar rales No accessory muscle use. HEART: s1s2 normal ABDOMEN: Soft, nontender, not distended, normoactive bowel sounds, no guarding, no rebound, no masses. MUSCULOSKELETAL: No CVA tenderness. UPPER EXTREMITIES: 2+ pulses, warm, well-perfused. No cyanosis. Cap refill <2 seconds. No peripheral edema. LOWER EXTREMITIES: 2+ pulses, warm, well-perfused. No calf tenderness. No peripheral edema. NEUROLOGICAL: Cranial nerves II-XII grossly intact PSYCHIATRIC: Cooperative. Good eye contact. Appropriate mood and affect. SKIN: Warm, dry, normal turgor, Laboratory Results - last 24 hr 12/16/16 12/16/16 12/16/16 12:41 12:41 12:41 WBC RBC Hgb Hct MCV MCHC RDW Plt Count MPV Neutrophils % Lymphocytes % Monocytes % Eosinophils % Basophils % INR PTT (Actin FS) Puncture Site ABG pH ABG pCO2 at Pt Temp ABG pO2 at Pt Temp ABG HCO3 ABG O2 Sat (Measured) ABG O2 Content ABG Base Excess Chito Test O2 Delivery Device Oxygen Flow Rate PEEP Sodium Potassium Chloride Carbon Dioxide Anion Gap BUN Creatinine Creat Clearance w eGFR POC Glucometer Random Glucose Hemoglobin A1c % Lactic Acid 1.689 Calcium Phosphorus Magnesium 2.1 D Cancelled Total Bilirubin AST ALT Alkaline Phosphatase Creatine Kinase 93 Troponin I 1.01 H* Total Protein Albumin Triglycerides 82 Cholesterol 139 Total LDL Cholesterol 77 HDL Cholesterol 59 TSH 2.39 12/16/16 12/16/16 12/16/16 12:41 14:45 17:00 WBC RBC Hgb Hct MCV MCHC RDW Plt Count MPV Neutrophils % Lymphocytes % Monocytes % Eosinophils % Basophils % INR 1.08 PTT (Actin FS) 25.8 L Puncture Site ABG pH ABG pCO2 at Pt Temp ABG pO2 at Pt Temp ABG HCO3 ABG O2 Sat (Measured) ABG O2 Content ABG Base Excess Chito Test O2 Delivery Device Oxygen Flow Rate PEEP Sodium Potassium Chloride Carbon Dioxide Anion Gap BUN Creatinine Creat Clearance w eGFR POC Glucometer Random Glucose Hemoglobin A1c % Lactic Acid Calcium Phosphorus Magnesium Total Bilirubin AST ALT Alkaline Phosphatase Creatine Kinase Troponin I 0.97 H* Total Protein Albumin Triglycerides Cancelled Cholesterol Cancelled Total LDL Cholesterol Cancelled HDL Cholesterol Cancelled TSH Cancelled 12/16/16 12/16/16 12/16/16 17:32 21:33 23:00 WBC RBC Hgb Hct MCV MCHC RDW Plt Count MPV Neutrophils % Lymphocytes % Monocytes % Eosinophils % Basophils % INR PTT (Actin FS) Puncture Site ABG pH ABG pCO2 at Pt Temp ABG pO2 at Pt Temp ABG HCO3 ABG O2 Sat (Measured) ABG O2 Content ABG Base Excess Chito Test O2 Delivery Device Oxygen Flow Rate PEEP Sodium Potassium Chloride Carbon Dioxide Anion Gap BUN Creatinine Creat Clearance w eGFR POC Glucometer 118.90422 218.44279 Random Glucose Hemoglobin A1c % Lactic Acid Calcium Phosphorus Magnesium Total Bilirubin AST ALT Alkaline Phosphatase Creatine Kinase 83 Troponin I 0.50 H Total Protein Albumin Triglycerides Cholesterol Total LDL Cholesterol HDL Cholesterol TSH 12/17/16 12/17/16 12/17/16 05:10 05:10 05:10 WBC 7.0 D RBC 3.67 Hgb 11.3 Hct 33.2 MCV 90.4 MCHC 34.0 RDW 15.0 Plt Count 150 D MPV 9.1 Neutrophils % 73.6 D Lymphocytes % 19.2 D Monocytes % 5.7 Eosinophils % 1.1 Basophils % 0.4 INR PTT (Actin FS) Puncture Site ABG pH ABG pCO2 at Pt Temp ABG pO2 at Pt Temp ABG HCO3 ABG O2 Sat (Measured) ABG O2 Content ABG Base Excess Chito Test O2 Delivery Device Oxygen Flow Rate PEEP Sodium 142 Potassium 3.7 Chloride 102 Carbon Dioxide 32 D Anion Gap 8 BUN 16 D Creatinine 1.0 Creat Clearance w eGFR 54.20 POC Glucometer Random Glucose 107 H D Hemoglobin A1c % 5.6 Lactic Acid Calcium 8.0 L Phosphorus 3.6 Magnesium 1.8 Total Bilirubin 0.4 AST 30 D ALT 40 Alkaline Phosphatase 47 Creatine Kinase 78 Troponin I 0.41 H Total Protein 5.9 L Albumin 3.0 L Triglycerides Cholesterol Total LDL Cholesterol HDL Cholesterol TSH 12/17/16 12/17/16 12/17/16 05:19 07:15 11:47 WBC RBC Hgb Hct MCV MCHC RDW Plt Count MPV Neutrophils % Lymphocytes % Monocytes % Eosinophils % Basophils % INR PTT (Actin FS) Puncture Site Right radial ABG pH 7.45 D ABG pCO2 at Pt Temp 43.2 ABG pO2 at Pt Temp 91.5 D ABG HCO3 29.3 H ABG O2 Sat (Measured) 97.4 ABG O2 Content 16.2 ABG Base Excess 5.1 H Chito Test Positive O2 Delivery Device N.c Oxygen Flow Rate 3 lpm PEEP 0.0 Sodium Potassium Chloride Carbon Dioxide Anion Gap BUN Creatinine Creat Clearance w eGFR POC Glucometer 129.77115 169.78042 Random Glucose Hemoglobin A1c % Lactic Acid Calcium Phosphorus Magnesium Total Bilirubin AST ALT Alkaline Phosphatase Creatine Kinase Troponin I Total Protein Albumin Triglycerides Cholesterol Total LDL Cholesterol HDL Cholesterol TSH ASSESSMENT/PLAN: Acute Hypoxemic/Hypercapneic Respiratory Failure due to Decompensated CHF IV lasix 40 mg bid maintaing a sturation of 99% on 2L monitor vitals monitor daily weight monitor intake/ output oxygen as needed follow ECHO, cardiac enzymes Cardiology consult HTN on metoprolol and losartan Fluid; orally allowed electrolyte: hypomagnesemia resolved nutrition: salt restricted diet DVT pro on heparin sq gi pro ; on protonix Dispo: patient transferred to [facility] by primary team. Visit type - Emergency Visit Emergency Visit: Yes ED Registration Date: 12/16/16 Care time: The patient presented to the Emergency Department on the above date and was hospitalized for further evaluation of their emergent condition. - New Patient This patient is new to me today: Yes Date on this admission: 12/17/16 - Critical Care Critical Care patient: No
--- NOTE | 2016-12-17 13:32 | EKG ---
Test Reason : Blood Pressure : / mmHG Vent. Rate : 063 BPM Atrial Rate : 063 BPM P-R Int : 168 ms QRS Dur : 102 ms QT Int : 466 ms P-R-T Axes : 047 068 103 degrees QTc Int : 476 ms NORMAL SINUS RHYTHM NONSPECIFIC T WAVE ABNORMALITY PROLONGED QT ABNORMAL ECG WHEN COMPARED WITH ECG OF 16-DEC-2016 03:14, VENT. RATE HAS DECREASED BY 46 BPM T WAVE INVERSION NOW EVIDENT IN ANTERIOR LEADS Confirmed by TERI SEARS MD ([id number]) on 12/17/2016 1:32:14 PM Referred By: LULY PEREIRA Confirmed By:TERI SEARS MD
[2016-12-17] MEDS ORDERED: ATORVASTATIN CA 40 MG TABLET (FP) PO SCH (22:00)
== END 2016-12-17 12:15 | disposition short-term general hospital (02) | DRG 291 ==
LOC: JER 03:00 → JERBED 04:22 → UNDOADMIN 05:22 → JICU 05:49
PROVIDERS: ADMIT Family Medicine; ATTEND Family Medicine
PROC: 5A0935Z Assistance with Respiratory Ventilation, Less than 24 Consecutive Hours (ICD-10-PCS; principal; 2016-12-16)
DX: I11.0 Hypertensive heart disease with heart failure (principal); J96.01 Acute respiratory failure with hypoxia; I24.8 Other forms of acute ischemic heart disease; I50.31 Acute diastolic (congestive) heart failure; Z72.0 Tobacco use; E83.42 Hypomagnesemia; E11.9 Type 2 diabetes mellitus without complications; I25.10 Atherosclerotic heart disease of native coronary artery without angina pectoris; I65.29 Occlusion and stenosis of unspecified carotid artery; R74.8 Abnormal levels of other serum enzymes; I35.1 Nonrheumatic aortic (valve) insufficiency
CPT/HCPCS: 36415; 36600; 71010-TC; 80053; 80061; 81003; 81015; 82009; 82375; 82550; 82803; 83036; 83050; 83605; 83721; 83735; 83880; 84100; 84443; 84484; 85025; 85610; 85730; 87040; 87070; 87086; 87205; 87254; 87804; 93005; 93010; 93306-TC; 94640; 94660; 99285-25; J1644

== ENCOUNTER 2019-05-28 12:21 | Inpatient (IN) | payer OTHER ==
[2019-05-28] MEDS ORDERED: ONDANSETRON 4 MG/2 ML VIAL IVPUSH ONE (13:21)
[2019-05-28] MEDS ORDERED: ACETAMINOPHEN 1000 MG/100 ML VIAL (NON FORMULARY) IVPB ONE (13:21)
--- NOTE | 2019-05-28 13:45 | PDOC ---
History of Present Illness - General Chief Complaint: Pain Stated Complaint: ABD PAIN Time Seen by Provider: 05/28/19 13:15 History Source: Patient Exam Limitations: No Limitations - History of Present Illness Initial Comments: 05/28/19 13:41 Patient is 78F with history of CABG and HTN here today complaining of diffuse abdominal pain for the past two weeks. Patient states that she feels bloated. She was evaluated by her PCP who was concerned for obstruction. No history of prior abdominal surgery. Last bowel movement this morning. No fevers, chills, vomiting. Patient does report nausea. Denies chest pain, shortness of breath, leg swelling. Denies dysuria. Endorses nausea. Past History - Past Medical History Allergies/Adverse Reactions: Allergies Allergy/AdvReac Type Severity Reaction Status Date / Time No Known Allergies Allergy Verified 03/11/14 09:18 Home Medications: Ambulatory Orders Amlodipine Besylate [Norvasc -] 10 mg PO DAILY 05/28/19 Apixaban [Eliquis] 5 mg PO BID 05/28/19 Aspirin 81 mg PO DAILY 05/28/19 Atorvastatin Ca [Lipitor] 20 mg PO HS 05/28/19 Citalopram Hydrobromide [Celexa -] 10 mg PO DAILY 05/28/19 Ferrous Sulfate [Feosol] 325 mg PO DAILY 05/28/19 Furosemide [Lasix] 20 mg PO DAILY 05/28/19 Levothyroxine [Synthroid -] 75 mcg PO DAILY 05/28/19 Metoprolol Succinate [Toprol Xl] 100 mg PO DAILY 05/28/19 Pantoprazole Sodium [Protonix] 40 mg PO DAILY 05/28/19 Ramipril 10 mg PO BID 05/28/19 Anemia: No Asthma: No Cancer: No Cardiac Disorders: No CVA: No COPD: Yes CHF: No Dementia: No Diabetes: No GI Disorders: No Disorders: No HTN: Yes Hypercholesterolemia: No Liver Disease: No Seizures: No Thyroid Disease: No - Surgical History Abdominal Surgery: No Appendectomy: No Cardiac Surgery: No Cholecystectomy: No Lung Surgery: No Neurologic Surgery: No Orthopedic Surgery: No - Suicide/Smoking/Psychosocial Hx Smoking History: Former smoker Have you smoked in the past 12 months: No Number of Cigarettes Smoked Daily: 2 If you are a former smoker, when did you quit?: 2017 Information on smoking cessation initiated: No Hx Alcohol Use: No Drug/Substance Use Hx: No Substance Use Type: None Review of Systems - Review of Systems Able to Perform ROS?: Yes Comments:: 05/28/19 13:43 GENERAL/CONSTITUTIONAL: No fever or chills. No weakness. HEAD, EYES, EARS, NOSE AND THROAT: No change in vision. No sore throat. CARDIOVASCULAR: No chest pain or shortness of breath RESPIRATORY: No cough, wheezing, or hemoptysis. GASTROINTESTINAL: +nausea no vomiting, diarrhea or constipation. GENITOURINARY: No dysuria, frequency, or change in urination. MUSCULOSKELETAL: No joint or muscle swelling or pain. No neck or back pain. SKIN: No rash NEUROLOGIC: No headache, vertigo, loss of consciousness, or change in strength/ sensation. ENDOCRINE: No increased thirst. No abnormal weight change HEMATOLOGIC/LYMPHATIC: +anemia history, no easy bleeding, or history of blood clots. ALLERGIC/IMMUNOLOGIC: No hives or skin allergy. *Physical Exam - Vital Signs Last Vital Signs Temp Pulse Resp BP Pulse Ox 97.6 F 74 20 133/46 L 100 05/28/19 12:41 05/28/19 12:41 05/28/19 12:41 05/28/19 12:41 05/28/19 12:41 - Physical Exam Comments: 05/28/19 13:44 GENERAL: Awake, alert, and fully oriented, in no acute distress, sitting up in bed HEAD: No signs of trauma, normocephalic, atraumatic EYES: PERRLA, EOMI, sclera anicteric, conjunctiva clear ENT: Auricles normal inspection, hearing grossly normal, nares patent, oropharynx clear without exudates. Moist mucosa NECK: Normal ROM, supple, no lymphadenopathy, JVD, or masses LUNGS: No distress, speaks full sentences, clear to auscultation bilaterally HEART: Regular rate and rhythm, normal S1 and S2, no murmurs, rubs or gallops, peripheral pulses normal and equal bilaterally. ABDOMEN: Soft, nontender, normoactive bowel sounds. No guarding, no rebound. No masses EXTREMITIES: Normal inspection, Normal range of motion, no edema. No clubbing or cyanosis. NEUROLOGICAL: Cranial nerves II through XII grossly intact. Normal speech, normal gait, no focal sensorimotor deficits SKIN: Warm, Dry, normal turgor, no rashes or lesions noted. ED Treatment Course - LABORATORY CBC & Chemistry Diagram: 05/28/19 14:20 05/28/19 14:20 - RADIOLOGY Radiology Studies Ordered: Category Date Time Status ABDOMEN & PELVIS CT WITH CONTR [CT] Stat CT Scan 05/28/19 13:22 Ordered Medical Decision Making - Medical Decision Making 05/28/19 13:44 Patient is 78F with history of aortic valve replacement (on eliquis), anemia, HTN and CABG here today with diffuse abdominal pain. Vitals normal and stable. DDx includes, but is not limited to: sbo, gastritis, pancreatitis. Will evaluate with abdominal labs, ctap w/iv contrast. Oral contrast not necessary. 05/28/19 15:40 CBC shows hgb of 7.8. Last hgb normal here. Patient has anemia at baseline, unsure of prior values. FOBT and rectal exam done. No gross blood or melena. Small hemorrhoids. CMP shows Cr 1.5, elevated from prior visits. 1L ordered. Lactate 3. Concern now elevated for mesenteric ischemia, CTA ordered. 05/28/19 17:56 EKG shows NSR with rate of 68. No st elevations/depressions. Normal axis. Normal intervals. T wave flattening in V2, aVL, I. 05/28/19 18:34 CT shows evidence of advanced endometrial or ovarian cancer with omental caking. Patient and family notified. 05/28/19 19:02 Case d/w Noemí and Nick. Will admit for transfusion, fluids, and further workup of cancer. *DC/Admit/Observation/Transfer Diagnosis at time of Disposition: Metastatic cancer, Acute kidney injury, Anemia, Abdominal pain - Discharge Dispostion Condition at time of disposition: Stable Decision to Admit order: Yes - Referrals Referrals: Bharathi Gillette MD [Primary Care Provider] - - Patient Instructions - Post Discharge Activity
[2019-05-28] MEDS ORDERED: ONDANSETRON 4 MG/2 ML VIAL ONE (14:24)
[2019-05-28] MEDS ORDERED: ACETAMINOPHEN INJECTION 100 ML IVPB ONE (14:24)
[2019-05-28 14:53] LABS: BASO % 0.5 % (0-2.0); EOS % 0.8 % (0-4.5); HEMATOCRIT 24.2 % (32.4-45.2); HEMOGLOBIN 7.8 GM/dL (10.7-15.3); LYMPH % 21.2 % (8-40); MCH 27.4 pg (25.7-33.7); MCHC 32.2 g/dl (32.0-36.0); MEAN CELL VOLUME 84.9 fl (80-96); MEAN PLT VOLUME 7.3 fl (7.5-11.1); MONO % 6.4 % (3.8-10.2); NEUT % 71.1 % (42.8-82.8); RBC 2.85 M/mm3 (3.60-5.2); RDW 16.2 % (11.6-15.6); WHITE BLOOD COUNT 11.7 K/mm3 (4.0-10.0)
[2019-05-28 14:56] LABS: EPI CELLS 10.4 /HPF (0-5/HPF); HYALINE CASTS 54 /lpf (0-8); URINE APPEARANCE CLOUDY; URINE BACTERIA 9.6 /hpf (NEGATIVE); URINE BILIRUBIN 1+ (NEGATIVE); URINE COLOR DK YELLOW; URINE GLUCOSE (UA) NEGATIVE (NEGATIVE); URINE KETONE NEGATIVE (NEGATIVE); URINE LEUK ESTERASE 1+ (NEGATIVE); URINE NITRITE NEGATIVE (NEGATIVE); URINE PROTEIN NEGATIVE (NEGATIVE); URINE RBC 4 /hpf (0-4); URINE WBC 9 /hpf (0-5)
[2019-05-28 14:59] LABS: PLATELET COUNT 429 K/MM3 (134-434)
[2019-05-28 15:22] LABS: ALBUMIN 3.2 g/dl (3.4-5.0); BILIRUBIN,TOTAL 0.4 mg/dL (0.2-1); BLOOD UREA NITROGEN 36.7 mg/dL (7-18); CALCIUM 9.6 mg/dL (8.5-10.1); CREATININE 1.6 mg/dL (0.55-1.3); POTASSIUM 5.5 mmol/L (3.5-5.1); TOT PROT 7.5 g/dl (6.4-8.2)
[2019-05-28] MEDS ORDERED: SODIUM CHLORIDE 1,000 ML IV STA (15:27)
--- NOTE | 2019-05-28 19:12 | PDOC ---
Documentation entered by Stef Lynn SCRIBE, acting as scribe for Suresh Callaway MD. Suresh Callaway MD: This documentation has been prepared by the Shane field Daniel, SCRIBE, under my direction and personally reviewed by me in its entirety. I confirm that the documentation accurately reflects all work, treatment, procedures, and medical decision making performed by me. Attending Attestation - Resident Resident Name: Lance Almanza - ED Attending Attestation I have performed the following: I have examined & evaluated the patient, The case was reviewed & discussed with the resident, I agree w/resident's findings & plan, Exceptions are as noted - HPI HPI: 05/28/19 14:30 The patient is a 78 year old female with a past medical history of AVR s/p eliquis, HTN, and CABG here today for evaluation of abdominal pain. The patient reports that she has had 2 weeks of diffuse abdominal pain. She reports that she went to Dr. Dowd's office who told her to come in due to concern for SBO due to abdominal distention. Patient notes nausea, and 1 episode of vomiting two days ago - states she vomited water. Reports bowel movement today but states they have been very small. Patient denies headache, lightheadedness, focal weakness/numbness. Denies fever , chills. Denies chest pain, shortness of breath. Denies vomiting, diarrhea. Allergies: NKA PCP: Bharathi Gillette - Physicial Exam PE: 05/28/19 14:30 GENERAL: Awake, alert, and fully oriented, in no acute distress EYES: PERRLA, EOMI, sclera anicteric, conjunctiva clear ENT: Oropharynx clear without exudates. Moist mucosa NECK: Normal ROM, supple, no lymphadenopathy, JVD, or masses LUNGS: Breath sounds equal, clear to auscultation bilaterally. No wheezes, and no crackles HEART: Regular rate and rhythm, normal S1 and S2, no murmurs, rubs or gallops ABDOMEN: Distended, non-tympanitic, diffuse mild ttp, no rebound or guarding EXTREMITIES: Normal range of motion, no edema. No clubbing or cyanosis. No cords , erythema, or tenderness BACK: No midline spinal tenderness in cervical/thoracic/lumbar region NEUROLOGICAL: Normal speech, cranial nerves intact, 5/5 strength in all 4 extremities, normal sensation to light touch in all 4 extremities SKIN: Warm, Dry, normal turgor, no rashes or lesions noted. - Medical Decision Making 05/28/19 18:30 78yoF presents to the ED with 2 weeks of abdominal pain, distention Vitals wnl DDx includes SBO vs ileus vs malignancy Labs with anemia to 7.8, guaic negative UA negative Lactic elevated to 3.4, concern for mesenteric ischemia given mild abd ttp CTA abd/pelvis ordered to evaluate for vascular pathology CTA abd/pelvis with ascitis, omental seeding, likely [employer] mass Results discussed with pt and her 2 children Plan to transfuse, admit for further mgmt
--- NOTE | 2019-05-28 20:13 | HP ---
Admitting History and Physical - Primary Care Physician PCP: Christiano Dowd - Admission Chief Complaint: abdominal bloating History of Present Illness: 78 year old F with h/o hypertension, diabetes (diet controlled), prior tobacco use, atrial fibrillation (on eliquis) carotid artery disease s/p stenting, CAD, and AI, LVEF 40%. On 01/01/17 patient underwent AVR (#23mm Ortega Perimount pericardial valve) and replacement of ascending aorta and hemiarch with 30mm Gelweave graft. Pt presents to ED for evaluation of abdominal bloating over the course of 2.5 weeks. She denies nausea/vomiting, fever/chills, CP/SOB, sick contacts or recent travel. In ED Vitals BP 131/52, HR 63, O2 sat 100% Labs: notable for H/H 7.8/24.2. K = 5.5, Lactate 3.1. Pt given 1L NS and underwent CTA abd/pelvis concerning for endometrial ca. Decision made to admit for further workup. History Source: Patient, Family Member Limitations to Obtaining History: No Limitations - Past Medical History Cardiovascular: Yes: Aortic Stenosis, CAD, HTN, Other (atrial fibrillation) Reproductive: Yes: Postmenopausal ...: No ...: 4 ...Para: 4 Heme/Onc: Yes: Anemia - Past Surgical History Additional Past Surgical History: Plugging of CSF leak 2012 c-scope > 5yrs ago H/O ascending aorta repair Status post aortic valve replacement with bioprosthetic valve Bilateral carotid artery stenosis S/P cataract surgery - Smoking History Smoking history: Former smoker Have you smoked in the past 12 months: No Aproximately how many cigarettes per day: 2 (1 pack per week x 20yrs) If you are a former smoker, when did you quit?: 2017 - Alcohol/Substance Use Hx Alcohol Use: No History of Substance Use: reports: None - Social History Usual Living Arrangement: Yes: With Child (daughter) ADL: Independent Occupation: History of Recent Travel: No Other Social History: HCP: Son Rohit Grant [phone] and daughter Stormy Grant [phone] Home Medications - Allergies Allergies/Adverse Reactions: Allergies Allergy/AdvReac Type Severity Reaction Status Date / Time No Known Allergies Allergy Verified 03/11/14 09:18 - Home Medications Home Medications: Ambulatory Orders Amlodipine Besylate [Norvasc -] 10 mg PO DAILY 05/28/19 Apixaban [Eliquis] 5 mg PO BID 05/28/19 Aspirin 81 mg PO DAILY 05/28/19 Atorvastatin Ca [Lipitor] 20 mg PO HS 05/28/19 Citalopram Hydrobromide [Celexa -] 10 mg PO DAILY 05/28/19 Ferrous Sulfate [Feosol] 325 mg PO DAILY 05/28/19 Furosemide [Lasix] 20 mg PO DAILY 05/28/19 Levothyroxine [Synthroid -] 75 mcg PO DAILY 05/28/19 Metoprolol Succinate [Toprol Xl] 100 mg PO DAILY 05/28/19 Pantoprazole Sodium [Protonix] 40 mg PO DAILY 05/28/19 Ramipril 10 mg PO BID 05/28/19 Family Disease History - Family Disease History Family Disease History: Other: Father ( (70+) natural causes), Mother ( (76) DM, HTN), Brother ( (70+) CAD s/p [place]), Sister (alive (71) thyroid disease) Other Family History: Brother (70+) CAD s/p [place]. Brother (70+ ) non-hodgkins lymphoma s/p tx. CAD s/p [place] Review of Systems - Review of Systems Constitutional: reports: No Symptoms Eyes: reports: No Symptoms HENT: reports: No Symptoms, Ocular Prosthesis Cardiovascular: reports: No Symptoms Respiratory: reports: No Symptoms Gastrointestinal: reports: Bloating Genitourinary: reports: No Symptoms Breasts: reports: No Symptoms Reported Musculoskeletal: reports: No Symptoms Integumentary: reports: No Symptoms Neurological: reports: No Symptoms Endocrine: reports: No Symptoms Hematology/Lymphatic: reports: No Symptoms Psychiatric: reports: No Symptoms Physical Examination Vital Signs: Vital Signs Temperature 97.6 F 05/28/19 12:41 Pulse Rate 63 05/28/19 15:27 Respiratory Rate 20 05/28/19 12:41 Blood Pressure 131/52 L 05/28/19 15:27 O2 Sat by Pulse Oximetry (%) 100 05/28/19 15:27 Constitutional: Yes: Well Nourished, No Distress, Calm, Obese Eyes: Yes: Conjunctiva Clear, PERRL HENT: Yes: Other (full upper dentures, partial lower dentures) Neck: Yes: Supple Cardiovascular: Yes: Regular Rate and Rhythm Respiratory: Yes: Regular, CTA Bilaterally Gastrointestinal: Yes: Soft, Abdomen, Obese, Hypoactive Bowel Sounds ...Rectal Exam: Yes: Deferred Renal/: Yes: WNL Musculoskeletal: Yes: WNL Extremities: Yes: WNL Edema: No Peripheral Pulses WNL: Yes Peripheral Pulses: Left Radial: 2+, Right Radial: 2+, Left Doralis Pedis: 2+, Right Dorsalis Pedis: 2+ Integumentary: Yes: WNL Neurological: Yes: Alert, Oriented ...Motor Strength: WNL Psychiatric: Yes: WNL, Alert, Oriented Labs: CBC, BMP 05/28/19 14:20 05/28/19 14:20 Imaging - Results Cat Scan: Report Reviewed (Ct abd/pelvis 05/28/2019 Impression: Extensive abdominal and pelvic ascites. Omental caking noted; peritoneal studding also suggested. Pelvic massess present. Endometrial cancer and/or ovarian tumors to be considered. Recommendation: suggest pelvic sono and/or pelvic MRI in follow up. Read by Layo Meyers MD) Problem List - Problems (1) Hypothyroidism Assessment/Plan: synthroid 75mcg daily f/u AM TFTs/TSH Code(s): E03.9 - HYPOTHYROIDISM, UNSPECIFIED (2) Bloated abdomen Assessment/Plan: Transvaginal sono completed,final read pending oncology consulted Code(s): R14.0 - ABDOMINAL DISTENSION (GASEOUS) (3) Acute kidney injury Assessment/Plan: Baseline cr ?? gentle hydration w/ NS at 42ml/hr trend Creatinine and electrolytes hold ramipril] restart lasix in AM Code(s): N17.9 - ACUTE KIDNEY FAILURE, UNSPECIFIED (4) Anemia Assessment/Plan: trend H/H TRanfuse for hgb < 7.5 in light of CAD history continue iron 325mg daily Code(s): D64.9 - ANEMIA, UNSPECIFIED (5) HTN (hypertension) Assessment/Plan: cardiac diet norvasc 10mg daily admit to tele unit Code(s): I10 - ESSENTIAL (PRIMARY) HYPERTENSION Qualifiers: Hypertension type: essential hypertension Qualified Code(s): I10 - Essential (primary) hypertension (6) Atrial fibrillation Assessment/Plan: continue toprol XL hold Eliquis Code(s): I48.91 - UNSPECIFIED ATRIAL FIBRILLATION (7) Depression Assessment/Plan: continue celexa Code(s): F32.9 - MAJOR DEPRESSIVE DISORDER, SINGLE EPISODE, UNSPECIFIED (8) Hyperkalemia Assessment/Plan: initial K 5.5, repeat 5.3 (kayexalate 15G overnight) Code(s): E87.5 - HYPERKALEMIA (9) Prophylactic measure Assessment/Plan: bowel regimen with senna/colace PPI Ambulate as tolerated Venodynes while in bed Code(s): Z29.9 - ENCOUNTER FOR PROPHYLACTIC MEASURES, UNSPECIFIED Assessment/Plan Code status: Full Visit type - Emergency Visit Emergency Visit: Yes ED Registration Date: 05/28/19 Care time: The patient presented to the Emergency Department on the above date and was hospitalized for further evaluation of their emergent condition. - New Patient This patient is new to me today: Yes Date on this admission: 05/28/19 - Critical Care Critical Care patient: No
[2019-05-28] MEDS: SODIUM CHLORIDE 1,000 ML IV SCH (22:08)
[2019-05-28 22:09] LABS: HEMATOCRIT 21.9 % (32.4-45.2); HEMOGLOBIN 7.1 GM/dL (10.7-15.3); MCH 27.6 pg (25.7-33.7); MCHC 32.6 g/dl (32.0-36.0); MEAN CELL VOLUME 84.5 fl (80-96); MEAN PLT VOLUME 7.3 fl (7.5-11.1); RBC 2.59 M/mm3 (3.60-5.2); RDW 16.3 % (11.6-15.6); WHITE BLOOD COUNT 7.6 K/mm3 (4.0-10.0)
[2019-05-28] MEDS ORDERED: ATORVASTATIN CA 20 MG TABLET (FP) ONE (22:14)
[2019-05-28] MEDS ORDERED: SENNOSIDES 8.6MG TABLET (FP) PO ONE (22:14)
[2019-05-28] MEDS ORDERED: DOCUSATE SODIUM 100 MG CAPSULE (FP) PO ONE (22:14)
[2019-05-28 22:17] LABS: PLATELET COUNT 366 K/MM3 (134-434)
[2019-05-28] MEDS: DOCUSATE SODIUM 100 MG CAPSULE (FP) PO SCH (22:19)
[2019-05-28] MEDS: SENNOSIDES 8.6MG TABLET (FP) PO SCH (22:19)
[2019-05-28] MEDS: ATORVASTATIN CA 20 MG TABLET (FP) PO SCH (22:19)
[2019-05-28 22:42] LABS: BLOOD UREA NITROGEN 33.9 mg/dL (7-18); CALCIUM 8.7 mg/dL (8.5-10.1); CREATININE 1.4 mg/dL (0.55-1.3); POTASSIUM 5.3 mmol/L (3.5-5.1)
[2019-05-28] MEDS ORDERED: SODIUM POLYSTYRENE SULFONATE 15 GM/60 ML BOTTLE PO ONE (23:03)
[2019-05-29 00:33] VITALS: BMI 36.7
[2019-05-29] MEDS: LEVOTHYROXINE NA 75 MCG TABLET (FP) PO SCH (06:17)
[2019-05-29 08:37] LABS: BASO % 0.5 % (0-2.0); EOS % 1.1 % (0-4.5); HEMATOCRIT 25.2 % (32.4-45.2); HEMOGLOBIN 8.2 GM/dL (10.7-15.3); LYMPH % 9.6 % (8-40); MCH 27.4 pg (25.7-33.7); MCHC 32.6 g/dl (32.0-36.0); MEAN PLT VOLUME 7.4 fl (7.5-11.1); MONO % 6.4 % (3.8-10.2); NEUT % 82.4 % (42.8-82.8); PLATELET COUNT 399 K/MM3 (134-434); RDW 16.5 % (11.6-15.6); WHITE BLOOD COUNT 8.8 K/mm3 (4.0-10.0)
[2019-05-29 08:48] LABS: INR 1.34 (0.83-1.09); PROTHROMBIN TIME (PATIENT) 15.8 SEC (9.7-13.0)
[2019-05-29 08:51] LABS: ACTIVATED PTT 27.8 SECONDS (25.2-36.5)
[2019-05-29 09:12] LABS: BILIRUBIN,TOTAL 0.9 mg/dL (0.2-1); BLOOD UREA NITROGEN 33.5 mg/dL (7-18); CALCIUM 8.9 mg/dL (8.5-10.1); CREATININE 1.4 mg/dL (0.55-1.3); MAGNESIUM 1.9 mg/dL (1.8-2.4); N-TERMINAL BNP 1502.4 pg/ml (5-450); PHOSPHOROUS 4.4 mg/dL (2.5-4.9); POTASSIUM 5.1 mmol/L (3.5-5.1)
[2019-05-29] MEDS: FERROUS SO4 325 MG TABLET (FP) PO SCH (11:12)
[2019-05-29] MEDS: DOCUSATE SODIUM 100 MG CAPSULE (FP) PO SCH ×2 (11:12→21:30)
[2019-05-29] MEDS: ASPIRIN 81 MG CHEWABLE TABLETS PO SCH (11:12)
[2019-05-29] MEDS: amLODIPine BESYLATE 10 MG TABLET (FP) PO SCH (11:12)
[2019-05-29] MEDS: FUROSEMIDE 20 MG TABLET (FP) PO SCH (11:12)
[2019-05-29] MEDS: PANTOPRAZOLE 40 MG TABLET (FP) PO SCH (11:12)
--- NOTE | 2019-05-29 11:35 | PN ---
Progress Note, Physician - Current Medication List Current Medications: Active Medications Acetaminophen (Tylenol -) 650 mg PO Q6H PRN PRN Reason: PAIN LEVEL 4 - 6 Amlodipine Besylate (Norvasc -) 10 mg PO DAILY [facility] Last Admin: 05/29/19 11:12 Dose: 10 mg Aspirin (Asa -) 81 mg PO DAILY [facility] Last Admin: 05/29/19 11:12 Dose: 81 mg Atorvastatin Calcium (Lipitor -) 20 mg PO HS [facility] Last Admin: 05/28/19 22:19 Dose: 20 mg Citalopram Hydrobromide (Celexa -) 10 mg PO DAILY [facility] Docusate Sodium (Colace -) 100 mg PO BID [facility] Last Admin: 05/29/19 11:12 Dose: 100 mg Ferrous Sulfate (Feosol -) 325 mg PO DAILY [facility] Last Admin: 05/29/19 11:12 Dose: 325 mg Furosemide (Lasix -) 20 mg PO DAILY [facility] Last Admin: 05/29/19 11:12 Dose: 20 mg Sodium Chloride (Normal Saline -) 1,000 mls @ 50 mls/hr IV ASDIR [facility] Stop: 05/29/19 20:05 Last Admin: 05/28/19 22:08 Dose: 50 mls/hr Levothyroxine Sodium (Synthroid -) 75 mcg PO DAILY@0700 [facility] Last Admin: 05/29/19 06:17 Dose: 75 mcg Metoprolol Succinate (Toprol Xl -) 100 mg PO DAILY [facility] Last Admin: 05/29/19 11:12 Dose: 100 mg Pantoprazole Sodium (Protonix -) 40 mg PO DAILY [facility] Last Admin: 05/29/19 11:12 Dose: 40 mg Senna (Senna -) [address] [facility] Last Admin: 05/28/19 22:19 Dose: 2 tab - Objective Vital Signs: Vital Signs Temperature 98.2 F 05/29/19 06:00 Pulse Rate 79 05/29/19 06:00 Respiratory Rate 20 05/29/19 06:00 Blood Pressure 132/80 05/29/19 10:40 O2 Sat by Pulse Oximetry (%) 100 05/29/19 09:00 Cardiovascular: Yes: Regular Rate and Rhythm, Murmur Respiratory: Yes: Regular, CTA Bilaterally Gastrointestinal: Yes: Normal Bowel Sounds, Soft, Distention, Tenderness Labs: CBC, BMP 05/29/19 08:00 08/25/19 08:10 INR, PTT INR 1.34 (0.83-1.09) H 05/29/19 08:10 Problem List - Problems (1) Pelvic mass Assessment/Plan: Transvaginal sono completed--Right Adnexal mass 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 125 cea bowel regimen with senna/colace PPI Ambulate as tolerated Code(s): R19.00 - INTRA-ABD AND PELVIC SWELLING, MASS AND LUMP, UNSP SITE (2) S/P AVR Assessment/Plan: no ac indicated Code(s): Z95.2 - PRESENCE OF PROSTHETIC HEART VALVE (3) Abdominal pain Code(s): R10.9 - UNSPECIFIED ABDOMINAL PAIN (4) Atrial fibrillation Assessment/Plan: off ac due to anemia in sinus now cardio her regular is dr lopez Code(s): I48.91 - UNSPECIFIED ATRIAL FIBRILLATION (5) Hypothyroidism Assessment/Plan: synthroid 75mcg daily f/u AM TFTs/TSH Code(s): E03.9 - HYPOTHYROIDISM, UNSPECIFIED (6) Diabetes Assessment/Plan: bgm Code(s): E11.9 - TYPE 2 DIABETES MELLITUS WITHOUT COMPLICATIONS Qualifiers: Diabetes mellitus type: type 2 (7) Anemia Assessment/Plan: trend H/H TRanfuse one more unit light of CAD history continue iron 325mg daily Code(s): D64.9 - ANEMIA, UNSPECIFIED (8) Acute kidney injury Assessment/Plan: Baseline cr ?? gentle hydration w/ NS at 42ml/hr trend Creatinine and electrolytes hold ramipril] restart lasix in AM Code(s): N17.9 - ACUTE KIDNEY FAILURE, UNSPECIFIED
--- NOTE | 2019-05-29 11:44 | EKG ---
Test Reason : Blood Pressure : / mmHG Vent. Rate : 068 BPM Atrial Rate : 068 BPM P-R Int : 162 ms QRS Dur : 096 ms QT Int : 422 ms P-R-T Axes : 077 065 090 degrees QTc Int : 448 ms NORMAL SINUS RHYTHM NONSPECIFIC ST ABNORMALITY ABNORMAL ECG WHEN COMPARED WITH ECG OF 16-DEC-2016 14:18, NONSPECIFIC T WAVE ABNORMALITY, IMPROVED IN ANTEROLATERAL LEADS CLINICAL CORRELATION IS RECOMMENDED BASELINE ARTIFACT Confirmed by RAFAELA SAMANIEGO, KAREN ([id number]) on 05/29/2019 11:43:50 AM Referred By: Confirmed By:KAREN RUSSO MD
[2019-05-29] MEDS: CITALOPRAM HYDROBROMIDE 10 MG TABLET (FP) PO SCH (17:06)
--- NOTE | 2019-05-29 17:15 | CONSULT ---
Consult Consult Specialty:: Nephrology Reason for Consultation:: CKD - History of Present Illness Chief Complaint: abdominal pain History of Present Illness: Pt is a 78 year old female with pmhx of AVR on eliquis, htn, ckd and cabg who presents with abdominal pain. She was found to have an adenexal mass. She was found to have elevated drawer in dobby loom and I was called to evaluate her. She denies shortness of breath. She does have renal insufficiency that has been stable. She was also found to be hyperkalemic. She has not had her age appropriate cancer screening. She denies nsaid use. - History Source History Provided By: Patient - Past Medical History Cardio/Vascular: Yes: Aortic Stenosis, CAD, HTN, Other (atrial fibrillation) Renal/: Yes: Renal Inusuff ...: No - Alcohol/Substance Use Hx Alcohol Use: No History of Substance Use: reports: None - Smoking History Smoking history: Former smoker Have you smoked in the past 12 months: No Aproximately how many cigarettes per day: 2 (1 pack per week x 20yrs) If you are a former smoker, when did you quit?: 2017 - Social History ADL: Independent Occupation: History of Recent Travel: No Home Medications - Allergies Allergies/Adverse Reactions: Allergies Allergy/AdvReac Type Severity Reaction Status Date / Time No Known Allergies Allergy Verified 03/11/14 09:18 - Home Medications Home Medications: Ambulatory Orders Amlodipine Besylate [Norvasc -] 10 mg PO DAILY 05/28/19 Apixaban [Eliquis] 5 mg PO BID 05/28/19 Aspirin 81 mg PO DAILY 05/28/19 Atorvastatin Ca [Lipitor] 20 mg PO HS 05/28/19 Citalopram Hydrobromide [Celexa -] 10 mg PO DAILY 05/28/19 Ferrous Sulfate [Feosol] 325 mg PO DAILY 05/28/19 Furosemide [Lasix] 20 mg PO DAILY 05/28/19 Levothyroxine [Synthroid -] 75 mcg PO DAILY 05/28/19 Metoprolol Succinate [Toprol Xl] 100 mg PO DAILY 05/28/19 Pantoprazole Sodium [Protonix] 40 mg PO DAILY 05/28/19 Ramipril 10 mg PO BID 05/28/19 Family Disease History - Family Disease History Family Disease History: Other: Father ( (70+) natural causes), Mother ( (76) DM, HTN), Brother ( (70+) CAD s/p [place]), Sister (alive (71) thyroid disease) Other Family History: Brother (70+) CAD s/p [place]. Brother (70+ ) non-hodgkins lymphoma s/p tx. CAD s/p [place] Review of Systems - Review of Systems Constitutional: reports: Malaise, Weakness Eyes: reports: No Symptoms HENT: reports: No Symptoms Neck: reports: No Symptoms Cardiovascular: reports: Edema Respiratory: reports: No Symptoms Gastrointestinal: reports: Abdominal Pain Genitourinary: reports: No Symptoms Musculoskeletal: reports: No Symptoms Integumentary: reports: No Symptoms Neurological: reports: No Symptoms Endocrine: reports: No Symptoms Hematology/Lymphatic: reports: No Symptoms Psychiatric: reports: No Symptoms Physical Exam Vital Signs: Vital Signs Temperature 98.2 F 05/29/19 06:00 Pulse Rate 79 05/29/19 06:00 Respiratory Rate 20 05/29/19 06:00 Blood Pressure 132/80 05/29/19 10:40 O2 Sat by Pulse Oximetry (%) 100 05/29/19 09:00 Constitutional: Yes: Calm Eyes: Yes: Conjunctiva Clear HENT: Yes: Atraumatic Neck: Yes: Supple Cardiovascular: Yes: S1, S2 Respiratory: Yes: CTA Bilaterally Gastrointestinal: Yes: Normal Bowel Sounds, Soft Renal/: Yes: WNL Musculoskeletal: Yes: WNL Edema: Yes Edema: LLE: 1+, RLE: 1+ Neurological: Yes: Oriented Psychiatric: Yes: Oriented Labs: CBC, BMP 05/29/19 08:00 05/29/19 08:10 Laboratory Tests 12/16/16 12/17/16 05/28/19 03:00 05:10 14:20 Hgb 7.8 L Sodium Potassium Creatinine 1.1 H 1.0 Urine Protein Urine Blood 05/28/19 05/28/19 05/28/19 14:20 14:20 22:01 Hgb Sodium 138 Potassium 5.3 H Creatinine 1.6 H 1.4 H Urine Protein Negative Urine Blood Negative 05/28/19 05/29/19 05/29/19 22:01 08:00 08:10 Hgb 7.1 L 8.2 L Sodium 139 Potassium 5.1 Creatinine 1.4 H Urine Protein Urine Blood Imaging - Results Chest X-ray: Report Reviewed Ultrasound: Report Reviewed Problem List - Problems (1) Abdominal pain Code(s): R10.9 - UNSPECIFIED ABDOMINAL PAIN (2) Hyperkalemia Code(s): E87.5 - HYPERKALEMIA Assessment/Plan Current Medications Generic Name Dose Route Start Last Admin Trade Name Freq PRN Reason Stop Dose Admin Acetaminophen 650 mg 05/28/19 19:57 Tylenol - PO Q6H PRN PAIN LEVEL 4 - 6 Amlodipine Besylate 10 mg 05/29/19 10:00 05/29/19 11:12 Norvasc - PO 10 mg DAILY [facility] Administration Aspirin 81 mg 05/29/19 10:00 05/29/19 11:12 Asa - PO 81 mg DAILY [facility] Administration Atorvastatin Calcium 20 mg 05/28/19 22:00 05/28/19 22:19 Lipitor - PO 20 mg HS [facility] Administration Citalopram Hydrobromide 10 mg 05/29/19 10:00 05/29/19 17:06 Celexa - PO Not Given DAILY [facility] Docusate Sodium 100 mg 05/28/19 22:00 05/29/19 11:12 Colace - PO 100 mg BID [facility] Administration Ferrous Sulfate 325 mg 05/29/19 10:00 05/29/19 11:12 Feosol - PO 325 mg DAILY [facility] Administration Furosemide 20 mg 05/29/19 10:00 05/29/19 11:12 Lasix - PO 20 mg DAILY [facility] Administration Sodium Chloride 1,000 mls @ 50 mls/hr 05/28/19 20:00 05/28/19 22:08 Normal Saline - IV 05/29/19 20:05 50 mls/hr ASDIR [facility] Administration Levothyroxine Sodium 75 mcg 05/29/19 07:00 05/29/19 06:17 Synthroid - PO 75 mcg DAILY@0700 [facility] Administration Metoprolol Succinate 100 mg 05/29/19 10:00 05/29/19 11:12 Toprol Xl - PO 100 mg DAILY [facility] Administration Pantoprazole Sodium 40 mg 05/29/19 10:00 05/29/19 11:12 Protonix - PO 40 mg DAILY [facility] Administration Senna 2 tab 05/28/19 22:00 05/28/19 22:19 Senna - PO 2 tab HS [facility] Administration Impression 1. CKD 2. adenexal mass 3. hypothyroidism 4. s/p avr 5. hyperkalemia 6. htn 7. hld 8. anemia Plan - adenexal mass workup in progress - renal function improved - potassium improved - lokelma if k is elevated - lasix if needed, she was on it in the past - case discussed with family at length
[2019-05-29] MEDS: SODIUM CHLORIDE 1,000 ML IV SCH (20:00)
[2019-05-29] MEDS: SENNOSIDES 8.6MG TABLET (FP) PO SCH (21:30)
[2019-05-29] MEDS: ACETAMINOPHEN 325 MG TABLET (FP) PO PRN (21:32)
[2019-05-29] MEDS: ATORVASTATIN CA 20 MG TABLET (FP) PO SCH (21:32)
--- NOTE | 2019-05-29 22:05 | CONSULT ---
Consult Consult Specialty:: Oncology Referred by:: Medicine Reason for Consultation:: Likely gynecological malignancy - History of Present Illness Chief Complaint: Abdominal pain - abnormal CT abdomen History of Present Illness: Patient presented to ER yesterday with a few week's history of worsening abdominal pain and weakness - found to be anemic, and on imaging found to have ascites, omental caking, and adnexal mass - suggestive of locally advanced ovarian cancer. On questioning, revealed that patient has had significant unexplained LOW past several months. No PV bleeding reported. - History Source History Provided By: Family Member, Medical Record Limitations to Obtaining History: No Limitations - Past Medical History Cardio/Vascular: Yes: Aortic Stenosis, CAD, HTN, Other (atrial fibrillation) Renal/: Yes: Renal Inusuff ...: No - Alcohol/Substance Use Hx Alcohol Use: No History of Substance Use: reports: None - Smoking History Smoking history: Former smoker Have you smoked in the past 12 months: No Aproximately how many cigarettes per day: 2 (1 pack per week x 20yrs) If you are a former smoker, when did you quit?: 2017 - Social History ADL: Independent Occupation: History of Recent Travel: No Home Medications - Allergies Allergies/Adverse Reactions: Allergies Allergy/AdvReac Type Severity Reaction Status Date / Time No Known Allergies Allergy Verified 03/11/14 09:18 - Home Medications Home Medications: Ambulatory Orders Amlodipine Besylate [Norvasc -] 10 mg PO DAILY 05/28/19 Apixaban [Eliquis] 5 mg PO BID 05/28/19 Aspirin 81 mg PO DAILY 05/28/19 Atorvastatin Ca [Lipitor] 20 mg PO HS 05/28/19 Citalopram Hydrobromide [Celexa -] 10 mg PO DAILY 05/28/19 Ferrous Sulfate [Feosol] 325 mg PO DAILY 05/28/19 Furosemide [Lasix] 20 mg PO DAILY 05/28/19 Levothyroxine [Synthroid -] 75 mcg PO DAILY 05/28/19 Metoprolol Succinate [Toprol Xl] 100 mg PO DAILY 05/28/19 Pantoprazole Sodium [Protonix] 40 mg PO DAILY 05/28/19 Ramipril 10 mg PO BID 05/28/19 Family Disease History - Family Disease History Family Disease History: Other: Father ( (70+) natural causes), Mother ( (76) DM, HTN), Brother ( (70+) CAD s/p [place]), Sister (alive (71) thyroid disease) Other Family History: Brother (70+) CAD s/p [place]. Brother (70+ ) non-hodgkins lymphoma s/p tx. CAD s/p [place] Review of Systems - Review of Systems Constitutional: reports: Unintentional Wgt. Loss Eyes: reports: No Symptoms HENT: reports: No Symptoms Neck: reports: No Symptoms Cardiovascular: denies: Chest Pain, Shortness of Breath Respiratory: denies: Cough Gastrointestinal: reports: Abdominal Pain. denies: Constipation, Diarrhea, Vomiting Genitourinary: reports: No Symptoms. denies: Vaginal Bleeding Breasts: reports: No Symptoms Reported Musculoskeletal: reports: No Symptoms Integumentary: reports: No Symptoms Neurological: reports: No Symptoms Hematology/Lymphatic: reports: No Symptoms Physical Exam Vital Signs: Vital Signs Temperature 98.2 F 05/29/19 06:00 Pulse Rate 79 05/29/19 06:00 Respiratory Rate 20 05/29/19 06:00 Blood Pressure 132/80 05/29/19 10:40 O2 Sat by Pulse Oximetry (%) 100 05/29/19 09:00 Constitutional: Yes: Well Nourished, No Distress Eyes: Yes: Conjunctiva Clear HENT: Yes: Atraumatic, Normocephalic Neck: Yes: Supple, Trachea Midline Cardiovascular: Yes: Pulse Irregular, S1, S2 Respiratory: Yes: Regular, CTA Bilaterally Gastrointestinal: Yes: Normal Bowel Sounds, Abdomen, Obese, Palpable Mass Musculoskeletal: No: Joint Swelling Extremities: Yes: WNL Edema: No Integumentary: Yes: WNL Neurological: Yes: Alert, Oriented ...Motor Strength: WNL Psychiatric: Yes: Alert, Oriented Labs: CBC, BMP 05/29/19 08:00 05/29/19 08:10 Assessment/Plan Patient with newly diagnosed, locally advanced (likely ovarian) cancer. Significant cardiac history, but in general reasonably good performance status. Labwork on presentation significant for marked anemia - likely malignancy associated. RBC transfusion reasonable in light of her being symptomatic. (Can screen for iron deficiency, albeit with low index of suspicion. Would not recommend empiric oral iron supplementation.) CA-125 pending. Will require follow up with gynecology-oncology - with view to definitive diagnosis - and typically with debulking surgery. No indication for inpatient management as far as medical oncology is concerned, and no role for medical oncology prior to FINISHER DENTURE/Onc evaluation. Discussed situation extensively with family
[2019-05-30] MEDS: LEVOTHYROXINE NA 75 MCG TABLET (FP) PO SCH (06:42)
[2019-05-30 07:03] LABS: BASO % 0.6 % (0-2.0); EOS % 2.9 % (0-4.5); HEMATOCRIT 25.8 % (32.4-45.2); HEMOGLOBIN 8.7 GM/dL (10.7-15.3); LYMPH % 15.3 % (8-40); MCHC 33.8 g/dl (32.0-36.0); MEAN CELL VOLUME 82.9 fl (80-96); MEAN PLT VOLUME 7.7 fl (7.5-11.1); MONO % 8.8 % (3.8-10.2); NEUT % 72.4 % (42.8-82.8); PLATELET COUNT 328 K/MM3 (134-434); RBC 3.11 M/mm3 (3.60-5.2); RDW 16.3 % (11.6-15.6); WHITE BLOOD COUNT 7.4 K/mm3 (4.0-10.0)
[2019-05-30 07:15] LABS: ALBUMIN 2.6 g/dl (3.4-5.0); BILIRUBIN,TOTAL 0.6 mg/dL (0.2-1); BLOOD UREA NITROGEN 31.9 mg/dL (7-18); CALCIUM 8.4 mg/dL (8.5-10.1); CREATININE 1.3 mg/dL (0.55-1.3); POTASSIUM 5.3 mmol/L (3.5-5.1); TOT PROT 6.1 g/dl (6.4-8.2)
[2019-05-30] MEDS ORDERED: PT OWN MED DRAWER 7, Y5N ONE (08:45)
[2019-05-30] MEDS: ASPIRIN 81 MG CHEWABLE TABLETS PO SCH (09:52)
[2019-05-30] MEDS: DOCUSATE SODIUM 100 MG CAPSULE (FP) PO SCH ×2 (09:53→21:46)
[2019-05-30] MEDS: FUROSEMIDE 20 MG TABLET (FP) PO SCH (09:53)
[2019-05-30] MEDS: CITALOPRAM HYDROBROMIDE 10 MG TABLET (FP) PO SCH (09:53)
[2019-05-30] MEDS: amLODIPine BESYLATE 10 MG TABLET (FP) PO SCH (09:53)
[2019-05-30] MEDS: PANTOPRAZOLE 40 MG TABLET (FP) PO SCH (09:53)
[2019-05-30] MEDS: FERROUS SO4 325 MG TABLET (FP) PO SCH (09:54)
--- NOTE | 2019-05-30 10:55 | PN ---
Progress Note, Physician History of Present Illness: Pt seen and examined at bedside. SHe is awake and alert. She denies shortness of breath. She denies dysuria. - Current Medication List Current Medications: Active Medications Acetaminophen (Tylenol -) 650 mg PO Q6H PRN PRN Reason: PAIN LEVEL 4 - 6 Last Admin: 05/29/19 21:32 Dose: 650 mg Amlodipine Besylate (Norvasc -) 10 mg PO DAILY [facility] Last Admin: 05/30/19 09:53 Dose: 10 mg Aspirin (Asa -) 81 mg PO DAILY [facility] Last Admin: 05/30/19 09:52 Dose: 81 mg Atorvastatin Calcium (Lipitor -) 20 mg PO HS [facility] Last Admin: 05/29/19 21:32 Dose: 20 mg Citalopram Hydrobromide (Celexa -) 10 mg PO DAILY [facility] Last Admin: 05/30/19 09:53 Dose: 10 mg Docusate Sodium (Colace -) 100 mg PO BID [facility] Last Admin: 05/30/19 09:53 Dose: 100 mg Ferrous Sulfate (Feosol -) 325 mg PO DAILY [facility] Last Admin: 05/30/19 09:54 Dose: 325 mg Furosemide (Lasix -) 20 mg PO DAILY [facility] Last Admin: 05/30/19 09:53 Dose: 20 mg Levothyroxine Sodium (Synthroid -) 75 mcg PO DAILY@0700 [facility] Last Admin: 05/30/19 06:42 Dose: 75 mcg Metoprolol Succinate (Toprol Xl -) 100 mg PO DAILY [facility] Last Admin: 05/30/19 09:53 Dose: 100 mg Pantoprazole Sodium (Protonix -) 40 mg PO DAILY [facility] Last Admin: 05/30/19 09:53 Dose: 40 mg Senna (Senna -) 2 tab PO [facility] Last Admin: 05/29/19 21:30 Dose: Not Given Sodium Zirconium Cyclosilicate (Lokelma) 10 gm PO DAILY [facility] - Objective Vital Signs: Vital Signs Temperature 98.3 F 05/30/19 09:20 Pulse Rate 67 05/30/19 09:20 Respiratory Rate 18 05/30/19 09:20 Blood Pressure 122/54 L 05/30/19 09:20 O2 Sat by Pulse Oximetry (%) 94 L 05/30/19 09:00 Constitutional: Yes: Calm Eyes: Yes: Conjunctiva Clear HENT: Yes: Atraumatic Neck: Yes: Supple Cardiovascular: Yes: S1, S2 Respiratory: Yes: CTA Bilaterally Gastrointestinal: Yes: Normal Bowel Sounds, Soft Genitourinary: Yes: WNL Edema: Yes Edema: LLE: 1+, RLE: 1+ Neurological: Yes: Oriented Psychiatric: Yes: Oriented Labs: CBC, BMP 05/30/19 05:35 05/30/19 05:35 INR, PTT INR 1.34 (0.83-1.09) H 05/29/19 08:10 Problem List - Problems (1) Abdominal pain Code(s): R10.9 - UNSPECIFIED ABDOMINAL PAIN (2) Hyperkalemia Code(s): E87.5 - HYPERKALEMIA Assessment/Plan Current Medications Generic Name Dose Route Start Last Admin Trade Name Freq PRN Reason Stop Dose Admin Acetaminophen 650 mg 05/28/19 19:57 05/29/19 21:32 Tylenol - PO 650 mg Q6H PRN Administration PAIN LEVEL 4 - 6 Amlodipine Besylate 10 mg 05/29/19 10:00 05/30/19 09:53 Norvasc - PO 10 mg DAILY [facility] Administration Aspirin 81 mg 05/29/19 10:00 05/30/19 09:52 Asa - PO 81 mg DAILY [facility]AGHAVENDRA Administration Atorvastatin Calcium 20 mg 05/28/19 22:00 05/29/19 21:32 Lipitor - PO 20 mg HS RAGHAVENDRA Administration Citalopram Hydrobromide 10 mg 05/29/19 10:00 05/30/19 09:53 Celexa - PO 10 mg DAILY [facility]ENDR[facility] Administration Docusate Sodium 100 mg 05/28/19 22:00 05/30/19 09:53 Colace - PO 100 mg BID RAGHAVENDRA Administration Ferrous Sulfate 325 mg 05/29/19 10:00 05/30/19 09:54 Feosol - PO 325 mg DAILY [facility] Administration Furosemide 20 mg 05/29/19 10:00 05/30/19 09:53 Lasix - PO 20 mg DAILY [facility] Administration Levothyroxine Sodium 75 mcg 05/29/19 07:00 05/30/19 06:42 Synthroid - PO 75 mcg DAILY@0700 [facility] Administration Metoprolol Succinate 100 mg 05/29/19 10:00 05/30/19 09:53 Toprol Xl - PO 100 mg DAILY [facility]DR[facility] Administration Pantoprazole Sodium 40 mg 05/29/19 10:00 05/30/19 09:53 Protonix - PO 40 mg DAILY [facility]ENDR[facility] Administration Senna 2 tab 05/28/19 22:00 05/29/19 21:30 Senna - PO Not Given HS RAGHAVENDRA Sodium Zirconium Cyclosilicate 10 gm 05/30/19 10:15 Lokelma PO DAILY [facility] Laboratory Tests 05/28/19 14:20 Urine Protein Negative Urine Blood Negative Impression 1. 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 hypothyroidism 4. s/p avr 5. hyperkalemia 6. htn 7. hld 8. anemia Plan - will give a lokelam - monitor potassium level - check mag levels tomorrow - adenexal mass workup in progress, follow markers, possibly ovarian - follow ct scan results - ua neg for blood or protein
[2019-05-30] MEDS: SODIUM ZIRCONIUM CYCLOSILICATE (LOKELMA) 5 GM PACKET PO SCH (11:23)
--- NOTE | 2019-05-30 12:41 | CON.CARD ---
Consult Consult Specialty:: cardiology Reason for Consultation:: Afib - History of Present Illness History of Present Illness: 78 year old F with h/o hypertension, diabetes, prior tobacco use, paroxysmal atrial fibrillation, carotid artery disease s/p stenting, On 01/01/17 patient underwent AVR (#23mm Ortega [place] pericardial valve) and replacement of ascending aorta and hemiarch with 30mm Gelweave graft. Pt presents to ED for evaluation of abdominal bloating and has concerns for abdominal malignancy possibly ovarian cancer. There is no dyspnea, palpitations or chest pain. - History Source Limitations to Obtaining History: No Limitations - Past Medical History Cardio/Vascular: Yes: Aortic Stenosis, CAD, HTN, Other (atrial fibrillation) Renal/: Yes: Renal Inusuff ...: No - Alcohol/Substance Use Hx Alcohol Use: No History of Substance Use: reports: None - Smoking History Smoking history: Former smoker Have you smoked in the past 12 months: No Aproximately how many cigarettes per day: 2 (1 pack per week x 20yrs) If you are a former smoker, when did you quit?: 2017 - Social History ADL: Independent Occupation: History of Recent Travel: No Home Medications - Allergies Allergies/Adverse Reactions: Allergies Allergy/AdvReac Type Severity Reaction Status Date / Time No Known Allergies Allergy Verified 03/11/14 09:18 - Home Medications Home Medications: Ambulatory Orders Amlodipine Besylate [Norvasc -] 10 mg PO DAILY 05/28/19 Apixaban [Eliquis] 5 mg PO BID 05/28/19 Aspirin 81 mg PO DAILY 05/28/19 Atorvastatin Ca [Lipitor] 20 mg PO HS 05/28/19 Citalopram Hydrobromide [Celexa -] 10 mg PO DAILY 05/28/19 Ferrous Sulfate [Feosol] 325 mg PO DAILY 05/28/19 Furosemide [Lasix] 20 mg PO DAILY 05/28/19 Levothyroxine [Synthroid -] 75 mcg PO DAILY 05/28/19 Metoprolol Succinate [Toprol Xl] 100 mg PO DAILY 05/28/19 Pantoprazole Sodium [Protonix] 40 mg PO DAILY 05/28/19 Ramipril 10 mg PO BID 05/28/19 Family Disease History - Family Disease History Family Disease History: Other: Father ( (70+) natural causes), Mother ( (76) DM, HTN), Brother ( (70+) CAD s/p [place]), Sister (alive (71) thyroid disease) Other Family History: Brother (70+) CAD s/p [place]. Brother (70+ ) non-hodgkins lymphoma s/p tx. CAD s/p [place] Review of Systems - Review of Systems Constitutional: reports: No Symptoms Eyes: reports: No Symptoms HENT: reports: No Symptoms Neck: reports: No Symptoms Cardiovascular: reports: No Symptoms Respiratory: reports: No Symptoms. denies: Cough, SOB, SOB on Exertion Gastrointestinal: reports: Abdominal Pain, Bloating Vital Signs: Vital Signs Temperature 98.3 F 05/30/19 09:20 Pulse Rate 67 05/30/19 09:20 Respiratory Rate 18 05/30/19 09:20 Blood Pressure 122/54 L 05/30/19 09:20 O2 Sat by Pulse Oximetry (%) 94 L 05/30/19 09:00 Constitutional: Yes: Well Nourished, No Distress Eyes: Yes: Conjunctiva Clear, EOM Intact HENT: Yes: Atraumatic, Normocephalic Neck: Yes: Supple, Trachea Midline Respiratory: Yes: Regular, CTA Bilaterally Gastrointestinal: Yes: Abdomen, Obese Cardiovascular: Yes: Regular Rate and Rhythm JVD: No Heart Sounds: Yes: S1, S2 Murmur: No: Systolic Murmur, Diastolic Murmur Edema: Yes Edema: LLE: 1+, RLE: 1+ - Other Data Labs, Other Data: CBC, BMP 05/30/19 05:35 05/30/19 05:35 INR, PTT INR 1.34 (0.83-1.09) H 05/29/19 08:10 Imaging - Results EKG: Image Reviewed (NSR no ST T changes.) Problem List - Problems (1) Atrial fibrillation Code(s): I48.91 - UNSPECIFIED ATRIAL FIBRILLATION Assessment/Plan History of AVR-bio, asending aortic replacement, PAF on AC. HFPEF Possibly intraabdominal Cancer. ECG with NSR. No Afib on telem. 1. Afib: Currently in NSR. At elevated stroke risk off AC. No bleeding issues. If possible, would resume AC unless biopsy or surgery is planned. 2. AVR-bio, ascending aortic surgery. Echo shows normally functioning AVR. Normal LV function. 3. edema Mild volume overload. COntinue with lasix. Will see as needed.
--- NOTE | 2019-05-30 15:07 | ECHO ---
Name: MILE FOX Exam:Adult Echocardiogram Study Date: 05/30/2019 08:09 AM Age: 78 yrs Reason For Study: h/o avr Height: 62 in Weight: 195 lb BSA: 1.9 m2 MMode/2D Measurements & Calculations IVSd: 1.1 cm Ao root diam: 3.8 cm LVIDd: 5.1 cm LA dimension: 5.9 cm LVIDs: 2.5 cm ACS: 1.6 cm LVPWd: 0.86 cm IVSs: 1.4 cm LVPWs: 1.3 cm EDV(Teich): 122.3 ml ESV(Teich): 23.2 ml LVOT diam: 2.0 cm Doppler Measurements & Calculations MV E max francisco: 95.7 cm/sec Ao V2 max: 195.8 cm/sec MV A max francisco: 100.8 cm/sec Ao max P.7 mmHg MV E/A: 0.95 Ao V2 mean: 149.2 cm/sec Ao mean P.2 mmHg Ao V2 VTI: 50.9 cm DOLORES(I,D): 1.5 cm2 DOLORES(V,D): 1.3 cm2 LV V1 max P.6 mmHg MR max francisco: 487.0 cm/sec LV V1 mean P.0 mmHg MR max P.0 mmHg LV V1 max: 80.7 cm/sec LV V1 mean: 65.9 cm/sec LV V1 VTI: 23.8 cm SV(LVOT): 76.0 ml TR max francisco: 273.0 cm/sec TR max P.0 mmHg Med Peak E' Francisco: 7.8 cm/sec Med E/e': 12.5 Lat Peak E' Francisco: 6.4 cm/sec Lat E/e': 15.4 Procedure A complete two-dimensional transthoracic echocardiogram was performed (2D, M-mode, Doppler and color flow Doppler). Technically limited study. Left Ventricle The left ventricle is normal in size. Left ventricular systolic function is normal. Ejection Fraction = 65- 70%. No regional wall motion abnormalities noted. Right Ventricle The right ventricle is normal size. The right ventricular systolic function is normal. Atria The left atrium is severely dilated. Right atrium not well visualized. Mitral Valve There is moderate mitral annular calcification. There is mild mitral regurgitation. Tricuspid Valve The tricuspid valve is normal in structure and function. There is mild tricuspid regurgitation. Pulmo nary artery systolic pressure is at least 35 mmHg if RA pressure is assumed 3 mmHg (IVC was not adequately visualized). Aortic Valve There is a bioprosthetic aortic valve. The prosthetic aortic valve is well-seated. DI (dimensionless index) is 0.56. Aortic mean pressure gradient= 10 mmHg. No aortic regurgitation is present. No paravalvular anya k across the aortic bioprosthesis. Pulmonic Valve The pulmonic valve is not well visualized. Great Vessels The aortic root is normal size. Pericardium/Pleura There is no pericardial effusion. Interpretation Summary Technically limited study The left ventricle is normal in size. Left ventricular systolic function is normal. No regional wall motion abnormalities noted. Ejection Fraction = 65-70%. The right ventricular systolic function is normal. The left atrium is severely dilated. There is moderate mitral annular calcification. There is mild mitral regurgitation. There is mild tricuspid regurgitation. Pulmonary artery systolic pressure is at least 35 mmHg if RA pressure is assumed 3 mmHg (IVC was not adequately visualized) There is a bioprosthetic aortic valve. The prosthetic aortic valve is well-seated. No aortic regurgitation is present. No paravalvular leak across the aortic bioprosthesis DI (dimensionless index) is 0.56 Aortic mean pressure gradient= 10 mmHg There is no pericardial effusion. Previous study is not available for comparison Tevin Solares MD 05/30/2019 03:07 PM
--- NOTE | 2019-05-30 16:30 | PN ---
Progress Note, Physician Chief Complaint: AWAKE ALERT EVENTS AND NOTES REVIEWED PATIENT C/O ABDOMINAL PAIN/DISTENTION - Current Medication List Current Medications: Active Medications Acetaminophen (Tylenol -) 650 mg PO Q6H PRN PRN Reason: PAIN LEVEL 4 - 6 Last Admin: 05/29/19 21:32 Dose: 650 mg Amlodipine Besylate (Norvasc -) 10 mg PO DAILY [facility] Last Admin: 05/30/19 09:53 Dose: 10 mg Aspirin (Asa -) 81 mg PO DAILY [facility] Last Admin: 05/30/19 09:52 Dose: 81 mg Atorvastatin Calcium (Lipitor -) 20 mg PO HS [facility] Last Admin: 05/29/19 21:32 Dose: 20 mg Citalopram Hydrobromide (Celexa -) 10 mg PO DAILY [facility] Last Admin: 05/30/19 09:53 Dose: 10 mg Docusate Sodium (Colace -) 100 mg PO BID [facility] Last Admin: 05/30/19 09:53 Dose: 100 mg Ferrous Sulfate (Feosol -) 325 mg PO DAILY [facility] Last Admin: 05/30/19 09:54 Dose: 325 mg Furosemide (Lasix -) 20 mg PO DAILY [facility] Last Admin: 05/30/19 09:53 Dose: 20 mg Levothyroxine Sodium (Synthroid -) 75 mcg PO DAILY@0700 [facility] Last Admin: 05/30/19 06:42 Dose: 75 mcg Metoprolol Succinate (Toprol Xl -) 100 mg PO DAILY [facility] Last Admin: 05/30/19 09:53 Dose: 100 mg Pantoprazole Sodium (Protonix -) 40 mg PO DAILY [facility] Last Admin: 05/30/19 09:53 Dose: 40 mg Senna (Senna -) 2 tab PO [facility] Last Admin: 05/29/19 21:30 Dose: Not Given Sodium Zirconium Cyclosilicate (Lokelma) 10 gm PO DAILY [facility] Last Admin: 05/30/19 11:23 Dose: 10 gm - Objective Vital Signs: Vital Signs Temperature 98.5 F 05/30/19 14:00 Pulse Rate 71 05/30/19 14:00 Respiratory Rate 20 05/30/19 14:00 Blood Pressure 119/73 05/30/19 14:00 O2 Sat by Pulse Oximetry (%) 94 L 05/30/19 09:00 Constitutional: Yes: Mild Distress Eyes: Yes: WNL HENT: Yes: WNL Neck: Yes: WNL Cardiovascular: Yes: Regular Rate and Rhythm Respiratory: Yes: Regular Gastrointestinal: Yes: Ascites, Distention, Palpable Mass Genitourinary: Yes: WNL Musculoskeletal: Yes: Muscle Weakness Edema: Yes Edema: LLE: Trace, RLE: Trace Peripheral Pulses WNL: Yes Integumentary: Yes: WNL Wound/Incision: Yes: Clean/Dry Neurological: Yes: WNL ...Motor Strength: WNL Psychiatric: Yes: WNL Labs: CBC, BMP 05/30/19 05:35 05/30/19 05:35 INR, PTT INR 1.34 (0.83-1.09) H 05/29/19 08:10 Problem List - Problems (1) Abdominal pain Code(s): R10.9 - UNSPECIFIED ABDOMINAL PAIN (2) Anemia Code(s): D64.9 - ANEMIA, UNSPECIFIED (3) Atrial fibrillation Code(s): I48.91 - UNSPECIFIED ATRIAL FIBRILLATION (4) Metastatic cancer Code(s): C79.9 - SECONDARY MALIGNANT NEOPLASM OF UNSPECIFIED SITE (5) Pelvic mass Code(s): R19.00 - INTRA-ABD AND PELVIC SWELLING, MASS AND LUMP, UNSP SITE (6) S/P AVR Code(s): Z95.2 - PRESENCE OF PROSTHETIC HEART VALVE (7) Carotid stenosis Code(s): I65.29 - OCCLUSION AND STENOSIS OF UNSPECIFIED CAROTID ARTERY (8) Diabetes Code(s): E11.9 - TYPE 2 DIABETES MELLITUS WITHOUT COMPLICATIONS Qualifiers: Diabetes mellitus type: type 2 Assessment/Plan AWAITING FOR OFFICIAL CT ABD/PELVIS RESULTS I CALLED DR CHARISSA ZAVALA RECORDER [facility] PROSPECTING/ONCOLOGY FOR APPT AN OUTPATIENT. GI CONSULT WITH DR NVAAS TRANSFUSED PRBC CHECKING RENAL FUNCTION K+ ELEVATED DR RODRIGUEZ ON THE CASE
--- NOTE | 2019-05-30 18:26 | CON.GI ---
Consult Consult Specialty:: GI Reason for Consultation:: abdominal distention - History of Present Illness History of Present Illness: 77 y/o F with 2 week hisotry of progressive abdominal distention and bloating. She denies change in bowel habits, rectal bleeding, nausea and vomiting Ct revealed --ascitis with righ adnexal mass - Past Medical History Cardio/Vascular: Yes: Aortic Stenosis, CAD, HTN, Other (atrial fibrillation) Renal/: Yes: Renal Inusuff ...: No - Alcohol/Substance Use Hx Alcohol Use: No History of Substance Use: reports: None - Smoking History Smoking history: Former smoker Have you smoked in the past 12 months: No Aproximately how many cigarettes per day: 2 (1 pack per week x 20yrs) If you are a former smoker, when did you quit?: 2017 - Social History ADL: Independent Occupation: History of Recent Travel: No Home Medications - Allergies Allergies/Adverse Reactions: Allergies Allergy/AdvReac Type Severity Reaction Status Date / Time No Known Allergies Allergy Verified 03/11/14 09:18 - Home Medications Home Medications: Ambulatory Orders Amlodipine Besylate [Norvasc -] 10 mg PO DAILY 05/28/19 Apixaban [Eliquis] 5 mg PO BID 05/28/19 Aspirin 81 mg PO DAILY 05/28/19 Atorvastatin Ca [Lipitor] 20 mg PO HS 05/28/19 Citalopram Hydrobromide [Celexa -] 10 mg PO DAILY 05/28/19 Ferrous Sulfate [Feosol] 325 mg PO DAILY 05/28/19 Furosemide [Lasix] 20 mg PO DAILY 05/28/19 Levothyroxine [Synthroid -] 75 mcg PO DAILY 05/28/19 Metoprolol Succinate [Toprol Xl] 100 mg PO DAILY 05/28/19 Pantoprazole Sodium [Protonix] 40 mg PO DAILY 05/28/19 Ramipril 10 mg PO BID 05/28/19 Family Disease History - Family Disease History Family Disease History: Other: Father ( (70+) natural causes), Mother ( (76) DM, HTN), Brother ( (70+) CAD s/p [place]), Sister (alive (71) thyroid disease) Other Family History: Brother (70+) CAD s/p [place]. Brother (70+ ) non-hodgkins lymphoma s/p tx. CAD s/p [place] Physical Exam-GI Vital Signs: Vital Signs Temperature 98.5 F 05/30/19 14:00 Pulse Rate 71 05/30/19 14:00 Respiratory Rate 20 05/30/19 14:00 Blood Pressure 119/73 05/30/19 14:00 O2 Sat by Pulse Oximetry (%) 94 L 05/30/19 09:00 Constitutional: Yes: Well Nourished Eyes: Yes: Conjunctiva Clear HENT: Yes: Atraumatic Neck: Yes: Supple Cardiovascular: Yes: Regular Rate and Rhythm Respiratory: Yes: CTA Bilaterally Gastrointestinal Inspection: Yes: Ascites, Distention ...Palpate: Yes: Soft. No: Firm/Rigid, Guarding, Hepatomegaly, Splenomegaly, Tenderness ...Percussion: Yes: Tympanitic Labs: CBC, BMP 05/30/19 05:35 05/30/19 05:35 INR, PTT INR 1.34 (0.83-1.09) H 05/29/19 08:10 Problem List - Problems (1) Ascites Assessment/Plan: most likely malignant from ovarian mass R> spoke to her son and daughter, they felt it was better to make the diagnosis nefore we informed her will need manager special events consulation and oncology consultation consider diagnostic and therapeutic paracentesis if manager special events agrees Code(s): R18.8 - OTHER ASCITES
[2019-05-30] MEDS: SENNOSIDES 8.6MG TABLET (FP) PO SCH (21:46)
[2019-05-30] MEDS: ATORVASTATIN CA 20 MG TABLET (FP) PO SCH (21:47)
[2019-05-30] MEDS: ACETAMINOPHEN 325 MG TABLET (FP) PO PRN (21:47)
[2019-05-30 23:11] LABS: CARCINOEMBRYONIC ANTIGEN 12.3 ng/mL (0.0-4.7)
[2019-05-31] MEDS: LEVOTHYROXINE NA 75 MCG TABLET (FP) PO SCH (06:30)
[2019-05-31 08:12] LABS: HEMATOCRIT 25.9 % (32.4-45.2); HEMOGLOBIN 8.6 GM/dL (10.7-15.3); MCH 27.6 pg (25.7-33.7); MCHC 33.2 g/dl (32.0-36.0); MEAN PLT VOLUME 7.4 fl (7.5-11.1); PLATELET COUNT 338 K/MM3 (134-434); RBC 3.12 M/mm3 (3.60-5.2); RDW 16.4 % (11.6-15.6); WHITE BLOOD COUNT 6.7 K/mm3 (4.0-10.0)
[2019-05-31 08:51] LABS: ALBUMIN 2.4 g/dl (3.4-5.0); BILIRUBIN,TOTAL 0.6 mg/dL (0.2-1); BLOOD UREA NITROGEN 28.8 mg/dL (7-18); CALCIUM 8.5 mg/dL (8.5-10.1); CREATININE 1.1 mg/dL (0.55-1.3); MAGNESIUM 1.9 mg/dL (1.8-2.4); POTASSIUM 4.7 mmol/L (3.5-5.1); TOT PROT 5.8 g/dl (6.4-8.2)
[2019-05-31] MEDS ORDERED: PT OWN MED DRAWER 7, Y5N ONE (09:46)
[2019-05-31] MEDS: FUROSEMIDE 20 MG TABLET (FP) PO SCH (10:29)
[2019-05-31] MEDS: CITALOPRAM HYDROBROMIDE 10 MG TABLET (FP) PO SCH (10:29)
[2019-05-31] MEDS: DOCUSATE SODIUM 100 MG CAPSULE (FP) PO SCH ×2 (10:29→21:57)
[2019-05-31] MEDS: amLODIPine BESYLATE 10 MG TABLET (FP) PO SCH (10:29)
[2019-05-31] MEDS: ASPIRIN 81 MG CHEWABLE TABLETS PO SCH (10:29)
[2019-05-31] MEDS: PANTOPRAZOLE 40 MG TABLET (FP) PO SCH (10:29)
[2019-05-31] MEDS: SODIUM ZIRCONIUM CYCLOSILICATE (LOKELMA) 5 GM PACKET PO SCH (10:30)
[2019-05-31] MEDS: FERROUS SO4 325 MG TABLET (FP) PO SCH (10:32)
--- NOTE | 2019-05-31 14:07 | PN ---
Progress Note, Physician History of Present Illness: Pt seen and examined at bedside. She is awake and alert. She denies shortness of breath. - Current Medication List Current Medications: Active Medications Acetaminophen (Tylenol -) 650 mg PO Q6H PRN PRN Reason: PAIN LEVEL 4 - 6 Last Admin: 05/30/19 21:47 Dose: 650 mg Amlodipine Besylate (Norvasc -) 10 mg PO DAILY [facility] Last Admin: 05/31/19 10:29 Dose: 10 mg Aspirin (Asa -) 81 mg PO DAILY [facility] Last Admin: 05/31/19 10:29 Dose: 81 mg Atorvastatin Calcium (Lipitor -) 20 mg PO HS [facility] Last Admin: 05/30/19 21:47 Dose: 20 mg Citalopram Hydrobromide (Celexa -) 10 mg PO DAILY [facility] Last Admin: 05/31/19 10:29 Dose: 10 mg Docusate Sodium (Colace -) 100 mg PO BID [facility] Last Admin: 05/31/19 10:29 Dose: 100 mg Ferrous Sulfate (Feosol -) 325 mg PO DAILY [facility] Last Admin: 05/31/19 10:32 Dose: 325 mg Furosemide (Lasix -) 20 mg PO DAILY [facility] Last Admin: 05/31/19 10:29 Dose: 20 mg Levothyroxine Sodium (Synthroid -) 75 mcg PO DAILY@0700 [facility] Last Admin: 05/31/19 06:30 Dose: 75 mcg Metoprolol Succinate (Toprol Xl -) 100 mg PO DAILY [facility] Last Admin: 05/31/19 10:29 Dose: 100 mg Pantoprazole Sodium (Protonix -) 40 mg PO DAILY [facility] Last Admin: 05/31/19 10:29 Dose: 40 mg Senna (Senna -) 2 tab PO HS [facility] Last Admin: 05/30/19 21:46 Dose: Not Given - Objective Vital Signs: Vital Signs Temperature 97.6 F 05/31/19 06:00 Pulse Rate 76 05/31/19 06:00 Respiratory Rate 17 05/31/19 06:00 Blood Pressure 120/53 L 05/31/19 06:00 O2 Sat by Pulse Oximetry (%) 95 05/30/19 21:00 Constitutional: Yes: Calm Eyes: Yes: Conjunctiva Clear HENT: Yes: Atraumatic Neck: Yes: Supple Cardiovascular: Yes: S1, S2 Respiratory: Yes: CTA Bilaterally Gastrointestinal: Yes: Soft, Abdomen, Obese Genitourinary: Yes: WNL Musculoskeletal: Yes: WNL Edema: Yes Edema: LLE: 1+, RLE: 1+ Neurological: Yes: Oriented Psychiatric: Yes: Oriented Labs: CBC, BMP 05/31/19 05:45 05/31/19 05:45 INR, PTT INR 1.34 (0.83-1.09) H 05/29/19 08:10 Problem List - Problems (1) Abdominal pain Code(s): R10.9 - UNSPECIFIED ABDOMINAL PAIN (2) Hyperkalemia Code(s): E87.5 - HYPERKALEMIA Assessment/Plan Current Medications Generic Name Dose Route Start Last Admin Trade Name Freq PRN Reason Stop Dose Admin Acetaminophen 650 mg 05/28/19 19:57 05/30/19 21:47 Tylenol - PO 650 mg Q6H PRN Administration PAIN LEVEL 4 - 6 Amlodipine Besylate 10 mg 05/29/19 10:00 05/31/19 10:29 Norvasc - PO 10 mg DAILY [facility]AGH[facility]ENDRA Administration Aspirin 81 mg 05/29/19 10:00 05/31/19 10:29 Asa - PO 81 mg DAILY RAGHAVENDRA Administration Atorvastatin Calcium 20 mg 05/28/19 22:00 05/30/19 21:47 Lipitor - PO 20 mg HS RAGHAVENDRA Administration Citalopram Hydrobromide 10 mg 05/29/19 10:00 05/31/19 10:29 Celexa - PO 10 mg DAILY RAGHAVENDRA Administration Docusate Sodium 100 mg 05/28/19 22:00 05/31/19 10:29 Colace - PO 100 mg BID RAGHAVENDRA Administration Ferrous Sulfate 325 mg 05/29/19 10:00 05/31/19 10:32 Feosol - PO 325 mg DAILY RAGHAVENDRA Administration Furosemide 20 mg 05/29/19 10:00 05/31/19 10:29 Lasix - PO 20 mg DAILY RAGHAVENDRA Administration Levothyroxine Sodium 75 mcg 05/29/19 07:00 05/31/19 06:30 Synthroid - PO 75 mcg DAILY@0700 RAGHAVENDRA Administration Metoprolol Succinate 100 mg 05/29/19 10:00 05/31/19 10:29 Toprol Xl - PO 100 mg DAILY RAGHAVENDRA Administration Pantoprazole Sodium 40 mg 05/29/19 10:00 05/31/19 10:29 Protonix - PO 40 mg DAILY RAGHAVENDRA Administration Senna 2 tab 05/28/19 22:00 05/30/19 21:46 Senna - PO Not Given HS RAGHAVENDRA Impression 1. 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 hypothyroidism 4. s/p avr 5. hyperkalemia 6. htn 7. hld 8. anemia Plan - potassium improved - renal function is stable - cont po lasix and monitor volume status - oncology workup in progress - ua neg for blood or protein
--- NOTE | 2019-05-31 17:38 | PN ---
Progress Note (short form) - Note Progress Note: D/W DR IBARRA [facility] AND PATIENT WILL NEED TO RESTART ELIQUIS AFTER PARACENTESIS CAN KEEP OFF ASA 81MG DAILY UNTIL PROCEDURES ARE COMPLETE. Problem List - Problems (1) Abdominal pain Code(s): R10.9 - UNSPECIFIED ABDOMINAL PAIN (2) Anemia Code(s): D64.9 - ANEMIA, UNSPECIFIED (3) Atrial fibrillation Code(s): I48.91 - UNSPECIFIED ATRIAL FIBRILLATION (4) Metastatic cancer Code(s): C79.9 - SECONDARY MALIGNANT NEOPLASM OF UNSPECIFIED SITE (5) Pelvic mass Code(s): R19.00 - INTRA-ABD AND PELVIC SWELLING, MASS AND LUMP, UNSP SITE (6) S/P AVR Code(s): Z95.2 - PRESENCE OF PROSTHETIC HEART VALVE (7) Carotid stenosis Code(s): I65.29 - OCCLUSION AND STENOSIS OF UNSPECIFIED CAROTID ARTERY (8) Diabetes Code(s): E11.9 - TYPE 2 DIABETES MELLITUS WITHOUT COMPLICATIONS Qualifiers: Diabetes mellitus type: type 2
--- NOTE | 2019-05-31 20:36 | PN ---
Progress Note (short form) - Note Progress Note: Patient seen and examined Reviewed imaging studies Elevated Ca-125 and CEA Large pelvic mass with ascites, omental caking, pulmonary nodules. 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 Establish diagnosis, chemotherapy adn debulking . Co morbid issues of cardiac status in patient problematic. Last Vital Signs Temp Pulse Resp BP Pulse Ox 98.1 F 74 18 122/78 100 05/31/19 17:00 05/31/19 19:07 05/31/19 19:07 05/31/19 19:07 05/31/19 09:00 Breasts: Without masses Cor: RSR, No murmurs, No gallops Lungs: Clear to P&A Abd: distended , ascites Ext:No significant edema Skin: No rashes, Integument intact CBC, BMP 05/31/19 05:45 05/31/19 05:45 INR, PTT INR 1.34 (0.83-1.09) H 05/29/19 08:10 Current Medications Generic Name Dose Route Start Last Admin Trade Name Freq PRN Reason Stop Dose Admin Acetaminophen 650 mg 05/28/19 19:57 05/30/19 21:47 Tylenol - PO 650 mg Q6H PRN Administration PAIN LEVEL 4 - 6 Amlodipine Besylate 10 mg 05/29/19 10:00 05/31/19 10:29 Norvasc - PO 10 mg DAILY RAGHAVENDRA Administration Atorvastatin Calcium 20 mg 05/28/19 22:00 05/30/19 21:47 Lipitor - PO 20 mg HS RAGHAVENDRA Administration Citalopram Hydrobromide 10 mg 05/29/19 10:00 05/31/19 10:29 Celexa - PO 10 mg DAILY RAGHAVENDRA Administration Docusate Sodium 100 mg 05/28/19 22:00 05/31/19 10:29 Colace - PO 100 mg BID RAGHAVENDRA Administration Ferrous Sulfate 325 mg 05/29/19 10:00 05/31/19 10:32 Feosol - PO 325 mg DAILY RAGHAVENDRA Administration Furosemide 20 mg 05/29/19 10:00 05/31/19 10:29 Lasix - PO 20 mg DAILY RAGHAVENDRA Administration Levothyroxine Sodium 75 mcg 05/29/19 07:00 05/31/19 06:30 Synthroid - PO 75 mcg DAILY@0700 RAGHAVENDRA Administration Metoprolol Succinate 100 mg 05/29/19 10:00 05/31/19 10:29 Toprol Xl - PO 100 mg DAILY RAGHAVENDRA Administration Pantoprazole Sodium 40 mg 05/29/19 10:00 05/31/19 10:29 Protonix - PO 40 mg DAILY RAGHAVENDRA Administration Senna 2 tab 05/28/19 22:00 05/30/19 21:46 Senna - PO Not Given HS RAGHAVENDRA Impression: Pelvic mass - ovarian vs. endometrial ca ascites Cardiac - AVR , \PAF Aneurysmal dilatation of aorta. For catheter drainage and cytology by I>R. > 30 minutes in discussion with patient and family.
[2019-05-31] MEDS: ATORVASTATIN CA 20 MG TABLET (FP) PO SCH (21:56)
[2019-05-31] MEDS: SENNOSIDES 8.6MG TABLET (FP) PO SCH (21:57)
[2019-06-01 06:11] VITALS: TEMP 98
[2019-06-01] MEDS: LEVOTHYROXINE NA 75 MCG TABLET (FP) PO SCH (06:29)
--- NOTE | 2019-06-01 09:41 | PN ---
Progress Note, Physician - Current Medication List Current Medications: Active Medications Acetaminophen (Tylenol -) 650 mg PO Q6H PRN PRN Reason: PAIN LEVEL 4 - 6 Last Admin: 05/30/19 21:47 Dose: 650 mg Amlodipine Besylate (Norvasc -) 10 mg PO DAILY [facility] Last Admin: 05/31/19 10:29 Dose: 10 mg Atorvastatin Calcium (Lipitor -) 20 mg PO HS [facility] Last Admin: 05/31/19 21:56 Dose: 20 mg Citalopram Hydrobromide (Celexa -) 10 mg PO DAILY [facility] Last Admin: 05/31/19 10:29 Dose: 10 mg Docusate Sodium (Colace -) 100 mg PO BID [facility] Last Admin: 05/31/19 21:57 Dose: Not Given Ferrous Sulfate (Feosol -) 325 mg PO DAILY [facility] Last Admin: 05/31/19 10:32 Dose: 325 mg Furosemide (Lasix -) 20 mg PO DAILY [facility] Last Admin: 05/31/19 10:29 Dose: 20 mg Levothyroxine Sodium (Synthroid -) 75 mcg PO DAILY@0700 [facility] Last Admin: 06/01/19 06:29 Dose: 75 mcg Metoprolol Succinate (Toprol Xl -) 100 mg PO DAILY [facility] Last Admin: 05/31/19 10:29 Dose: 100 mg Pantoprazole Sodium (Protonix -) 40 mg PO DAILY [facility] Last Admin: 05/31/19 10:29 Dose: 40 mg Senna (Senna -) 2 tab PO HS [facility] Last Admin: 05/31/19 21:57 Dose: Not Given - Objective Vital Signs: Vital Signs Temperature 98 F 06/01/19 06:00 Pulse Rate 84 06/01/19 06:00 Respiratory Rate 20 06/01/19 06:00 Blood Pressure 136/72 06/01/19 06:00 O2 Sat by Pulse Oximetry (%) 96 05/31/19 22:00 Cardiovascular: Yes: Murmur, S1, S2 Respiratory: Yes: Regular, CTA Bilaterally Gastrointestinal: Yes: Normal Bowel Sounds, Soft, Ascites, Distention Labs: CBC, BMP 05/31/19 05:45 05/31/19 05:45 INR, PTT INR 1.34 (0.83-1.09) H 05/29/19 08:10 Problem List - Problems (1) Pelvic mass Assessment/Plan: Transvaginal sono completed--Right Adnexal mass oncology consulted 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 HAND 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 consult ca 125 cea Laboratory Tests 05/29/19 12:40 Carcinoembryonic Ag 12.3 H CA [address] CHEST NOTED--SMALL NODULES AND FEW LN FOR TAP TODAY POSSIBLE DEBULKING SURGERY ON THURSDAY Ambulate as tolerated Code(s): R19.00 - INTRA-ABD AND PELVIC SWELLING, MASS AND LUMP, UNSP SITE (2) Ascites Assessment/Plan: ABOVE TAP AND CYTOLOGY Code(s): R18.8 - OTHER ASCITES (3) S/P AVR Assessment/Plan: no ac indicated Code(s): Z95.2 - PRESENCE OF PROSTHETIC HEART VALVE (4) Abdominal pain Assessment/Plan: ABOVE Code(s): R10.9 - UNSPECIFIED ABDOMINAL PAIN (5) Atrial fibrillation Assessment/Plan: off ac due to anemia in sinus now cardio her regular is dr lopez Code(s): I48.91 - UNSPECIFIED ATRIAL FIBRILLATION (6) Hypothyroidism Assessment/Plan: synthroid 75mcg daily f/u AM TFTs/TSH Code(s): E03.9 - HYPOTHYROIDISM, UNSPECIFIED (7) Diabetes Assessment/Plan: bgm Code(s): E11.9 - TYPE 2 DIABETES MELLITUS WITHOUT COMPLICATIONS Qualifiers: Diabetes mellitus type: type 2 (8) Anemia Assessment/Plan: trend H/H TRanfuse one more unit light of CAD history continue iron 325mg daily Code(s): D64.9 - ANEMIA, UNSPECIFIED (9) Acute kidney injury Assessment/Plan: Baseline cr ?? gentle hydration w/ NS at 42ml/hr trend Creatinine and electrolytes hold ramipril] restart lasix in AM Code(s): N17.9 - ACUTE KIDNEY FAILURE, UNSPECIFIED Assessment/Plan PATIENT MEDICALLY OPTIMIZED FOR SURGERY.PATIENT REQUIRES SURGERY AND THE BENEFIT OUTWEIGH RISK OF PROCEDURE PATIENT DENIES ANY CP OR SOB AND THERE IS NO EVIDENCE OF ACTIVE CARDIAC DISEASE POSTOP CARDIAC MONITORING AND AC ONCE CLEARED BY SURGEON
--- NOTE | 2019-06-01 10:18 | DS ---
Physical Examination Vital Signs: Vital Signs Temperature 98 F 06/01/19 06:00 Pulse Rate 84 06/01/19 06:00 Respiratory Rate 20 06/01/19 06:00 Blood Pressure 136/72 06/01/19 06:00 O2 Sat by Pulse Oximetry (%) 96 05/31/19 22:00 Findings/Remarks: TRANSFERRING FOR SURGERY Constitutional: Yes: Mild Distress HENT: Yes: WNL Neck: Yes: WNL Cardiovascular: Yes: Pulse Irregular Respiratory: Yes: WNL Gastrointestinal: Yes: Palpable Mass Musculoskeletal: Yes: Muscle Weakness Edema: Yes Labs: CBC, BMP 05/31/19 05:45 05/31/19 05:45 Discharge Summary Reason For Visit: METASTATIC NEOPLASM Current Active Problems Abdominal pain (Acute) Acute kidney injury (Acute) Anemia (Acute) Ascites (Acute) Atrial fibrillation (Acute) Bloated abdomen (Acute) Depression (Acute) Hyperkalemia (Acute) Hypothyroidism (Acute) Metastatic cancer (Acute) Pelvic mass (Acute) Prophylactic measure (Acute) S/P AVR (Acute) Procedures: Principal: CT SCANS CHEST ABD PELVIS, TRANSVAGINAL SONO Hospital Course: ADMITTED AND FOUND TO HAVE OVARIAN MASS WITH METS, WILL TRANSFER TO [facility] FOR ROBOTIC DEBULKING Condition: Stable - Instructions Diet, Activity, Other Instructions: PLEASE RESTART ASA AND ELIQUIS ONCE SURGERY 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 [facility]. [phone] PATIENT WILL LEAVE WITH FAMILY IN CAR TO HOSPITAL Disposition: HOME - Home Medications Comprehensive Discharge Medication List: Ambulatory Orders Amlodipine Besylate [Norvasc -] 10 mg PO DAILY 05/28/19 Apixaban [Eliquis] 5 mg PO BID 05/28/19 Aspirin 81 mg PO DAILY 05/28/19 Atorvastatin Ca [Lipitor] 20 mg PO HS 05/28/19 Citalopram Hydrobromide [Celexa -] 10 mg PO DAILY 05/28/19 Ferrous Sulfate [Feosol] 325 mg PO DAILY 05/28/19 Furosemide [Lasix] 20 mg PO DAILY 05/28/19 Levothyroxine [Synthroid -] 75 mcg PO DAILY 05/28/19 Metoprolol Succinate [Toprol Xl] 100 mg PO DAILY 05/28/19 Pantoprazole Sodium [Protonix] 40 mg PO DAILY 05/28/19 Ramipril 10 mg PO BID 05/28/19
[2019-06-01] MEDS ORDERED: PT OWN MED DRAWER 7, Y5N ONE (10:36)
[2019-06-01] MEDS: CITALOPRAM HYDROBROMIDE 10 MG TABLET (FP) PO SCH (11:10)
[2019-06-01] MEDS: DOCUSATE SODIUM 100 MG CAPSULE (FP) PO SCH (11:10)
[2019-06-01] MEDS: PANTOPRAZOLE 40 MG TABLET (FP) PO SCH (11:10)
[2019-06-01] MEDS: amLODIPine BESYLATE 10 MG TABLET (FP) PO SCH (11:10)
[2019-06-01] MEDS: FERROUS SO4 325 MG TABLET (FP) PO SCH (11:10)
[2019-06-01] MEDS: FUROSEMIDE 20 MG TABLET (FP) PO SCH (11:10)
[2019-06-01 13:07] VITALS: BP 156/79; PULSE 72
--- NOTE | 2019-06-01 13:09 | PN ---
Progress Note, Physician History of Present Illness: Pt seen and examined. She has some abdominal discomfort but does not feel much different. - Current Medication List Current Medications: Active Medications Acetaminophen (Tylenol -) 650 mg PO Q6H PRN PRN Reason: PAIN LEVEL 4 - 6 Last Admin: 05/30/19 21:47 Dose: 650 mg Amlodipine Besylate (Norvasc -) 10 mg PO DAILY [facility] Last Admin: 06/01/19 11:10 Dose: 10 mg Atorvastatin Calcium (Lipitor -) 20 mg PO HS [facility] Last Admin: 05/31/19 21:56 Dose: 20 mg Citalopram Hydrobromide (Celexa -) 10 mg PO DAILY [facility] Last Admin: 06/01/19 11:10 Dose: 10 mg Docusate Sodium (Colace -) 100 mg PO BID [facility] Last Admin: 06/01/19 11:10 Dose: 100 mg Ferrous Sulfate (Feosol -) 325 mg PO DAILY [facility] Last Admin: 06/01/19 11:10 Dose: 325 mg Furosemide (Lasix -) 20 mg PO DAILY [facility] Last Admin: 06/01/19 11:10 Dose: 20 mg Levothyroxine Sodium (Synthroid -) 75 mcg PO DAILY@0700 [facility] Last Admin: 06/01/19 06:29 Dose: 75 mcg Metoprolol Succinate (Toprol Xl -) 100 mg PO DAILY [facility] Last Admin: 06/01/19 11:10 Dose: 100 mg Pantoprazole Sodium (Protonix -) 40 mg PO DAILY [facility] Last Admin: 06/01/19 11:10 Dose: 40 mg Senna (Senna -) 2 tab PO [facility] Last Admin: 05/31/19 21:57 Dose: Not Given - Objective Vital Signs: Vital Signs Temperature 98 F 06/01/19 06:00 Pulse Rate 72 06/01/19 10:00 Respiratory Rate 18 06/01/19 10:00 Blood Pressure 156/79 06/01/19 10:00 O2 Sat by Pulse Oximetry (%) 96 06/01/19 09:00 Constitutional: Yes: Calm Eyes: Yes: Conjunctiva Clear HENT: Yes: Atraumatic Neck: Yes: Supple Cardiovascular: Yes: S1, S2 Respiratory: Yes: CTA Bilaterally Gastrointestinal: Yes: Soft Genitourinary: Yes: WNL Edema: Yes Edema: LLE: Trace, RLE: Trace Neurological: Yes: Oriented Psychiatric: Yes: Oriented Labs: CBC, BMP 05/31/19 05:45 05/31/19 05:45 INR, PTT INR 1.34 (0.83-1.09) H 05/29/19 08:10 Problem List - Problems (1) Abdominal pain Code(s): R10.9 - UNSPECIFIED ABDOMINAL PAIN (2) Hyperkalemia Code(s): E87.5 - HYPERKALEMIA Assessment/Plan Current Medications Generic Name Dose Route Start Last Admin Trade Name Freq PRN Reason Stop Dose Admin Acetaminophen 650 mg 05/28/19 19:57 05/30/19 21:47 Tylenol - PO 650 mg Q6H PRN Administration PAIN LEVEL 4 - 6 Amlodipine Besylate 10 mg 05/29/19 10:00 06/01/19 11:10 Norvasc - PO 10 mg DAILY RAGHAVENDRA Administration Atorvastatin Calcium 20 mg 05/28/19 22:00 05/31/19 21:56 Lipitor - PO 20 mg HS RAGHAVENDRA Administration Citalopram Hydrobromide 10 mg 05/29/19 10:00 06/01/19 11:10 Celexa - PO 10 mg DAILY RAGHAVENDRA Administration Docusate Sodium 100 mg 05/28/19 22:00 06/01/19 11:10 Colace - PO 100 mg BID RAGHAVENDRA Administration Ferrous Sulfate 325 mg 05/29/19 10:00 06/01/19 11:10 Feosol - PO 325 mg DAILY RAGHAVENDRA Administration Furosemide 20 mg 05/29/19 10:00 06/01/19 11:10 Lasix - PO 20 mg DAILY RAGHAVENDRA Administration Levothyroxine Sodium 75 mcg 05/29/19 07:00 06/01/19 06:29 Synthroid - PO 75 mcg DAILY@0700 RAGHAVENDRA Administration Metoprolol Succinate 100 mg 05/29/19 10:00 06/01/19 11:10 Toprol Xl - PO 100 mg DAILY RAGHAVENDRA Administration Pantoprazole Sodium 40 mg 05/29/19 10:00 06/01/19 11:10 Protonix - PO 40 mg DAILY RAGHAVENDRA Administration Senna 2 tab 05/28/19 22:00 05/31/19 21:57 Senna - PO Not Given HS RAGHAVENDRA Impression 1. 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 hypothyroidism 4. s/p avr 5. hyperkalemia 6. htn 7. hld 8. 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
--- NOTE | 2019-06-01 16:43 | CONSULT ---
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 Flynn Reason for Consultation:: Pelvic mass, elevated CA 125 - History of Present Illness Chief Complaint: Abdominal distension History of Present Illness: 78 yo with pelvic mass, ascites, elevated CA 125 C/o increasing abdominal girth over last several weeks. Admitted to [facility] through ED. CT with mod/large ascites, omental caking, peritoneal nodularity, Large solid/ cystic pelvic mass 12.6 x 11.5 cm, predominantly in left hemipelvis. Chest CT with few tiny nodules 3 mm, nonspecific. Largest paratracheal LN 1.2 cm. Pelvic ultrasound - uterus 4.7 x 2.6 cm with small fluid within cavity, 8 mm. Large right complex adnexal mass 9.2 x 6.5 cm. Left ovary not visualized. No free fluid. Denies VB. No melena/BRBPR. CA 125 233.3 CEA 12.3 UA- no blood. Stool guiac negative. Family history- no breast, uterine, colon, ovarian CA Last mammogram less than one year ago. Last colonoscopy over 10 years ago. - History Source History Provided By: Patient, Family Member, Medical Record Limitations to Obtaining History: No Limitations - Past Medical History Cardio/Vascular: Yes: AFIB, Aortic Stenosis, CAD, HTN, Other (atrial fibrillation) Renal/: Yes: Renal Inusuff ...: No - Past Surgical History Additional Surgical History: Ao valve replacement - Alcohol/Substance Use Hx Alcohol Use: No History of Substance Use: reports: None - Smoking History Smoking history: Former smoker Have you smoked in the past 12 months: No Aproximately how many cigarettes per day: 2 (1 pack per week x 20yrs) If you are a former smoker, when did you quit?: 2017 - Social History ADL: Independent Occupation: History of Recent Travel: No Home Medications - Allergies Allergies/Adverse Reactions: Allergies Allergy/AdvReac Type Severity Reaction Status Date / Time No Known Allergies Allergy Verified 03/11/14 09:18 - Home Medications Home Medications: Ambulatory Orders Amlodipine Besylate [Norvasc -] 10 mg PO DAILY 05/28/19 Citalopram Hydrobromide [Celexa -] 10 mg PO DAILY 05/28/19 Ferrous Sulfate [Feosol] 325 mg PO DAILY 05/28/19 Furosemide [Lasix] 20 mg PO DAILY 05/28/19 Levothyroxine [Synthroid -] 75 mcg PO DAILY 05/28/19 Metoprolol Succinate [Toprol Xl] 100 mg PO DAILY 05/28/19 Pantoprazole Sodium [Protonix] 40 mg PO DAILY 05/28/19 Ramipril 10 mg PO BID 05/28/19 Acetaminophen [Tylenol .Regular Strength -] 650 mg PO Q6H PRN tablet 06/01/19 Atorvastatin Ca [Lipitor] 20 mg PO HS tablet 06/01/19 Docusate Sodium [Colace -] 100 mg PO BID capsule 06/01/19 Sodium Zirconium Cyclosilicate [Lokelma] 10 gm PO DAILY packet 06/01/19 Family Disease History - Family Disease History Family Disease History: Other: Father ( (70+) natural causes), Mother ( (76) DM, HTN), Brother ( (70+) CAD s/p LA), Sister (alive (71) thyroid disease) Other Family History: Brother (70+) CAD s/p LA. Brother (70+ ) non-hodgkins lymphoma s/p tx. CAD s/p LA Physical Exam Vital Signs: Vital Signs Temperature 98 F 06/01/19 06:00 Pulse Rate 72 06/01/19 10:00 Respiratory Rate 18 06/01/19 10:00 Blood Pressure 156/79 06/01/19 10:00 O2 Sat by Pulse Oximetry (%) 96 06/01/19 09:00 Constitutional: Yes: Well Nourished, No Distress, Calm Eyes: Yes: WNL HENT: Yes: WNL Neck: Yes: WNL Gastrointestinal: Yes: Abdomen, Obese, Ascites, Distention ...Rectal Exam: Yes: Deferred Musculoskeletal: Yes: WNL Extremities: Yes: WNL Integumentary: Yes: WNL Neurological: Yes: WNL, Alert, Oriented Labs: CBC, BMP 05/31/19 05:45 05/31/19 05:45 Imaging - Results Chest X-ray: Report Reviewed Cat Scan: Image Reviewed Ultrasound: Image Reviewed Problem List - Problems (1) Ascites Assessment/Plan: 78 yo with large pelvic mass, ascites, omental caking, peritoneal nodularity, elevated CA 125. Imaging reviewed. I have discussed with Ms. Grant and her family the options for treatment of likely metastatic ovarian cancer. One option is for ex lap, CHERELLE/BSO, tumor debulking. However, benefit only if able to be optimally debulked with no gross residual disease. Otherwise, overall survival is same if has neoadjuvant chemotherapy and interval hysterectomy, BSO. At this point, tumor would have shrunk to allow for minimally invasive surgery. Neoadjuvant chemotherapy + interval debulking has much less morbidity than up front surgery. Given patient's advanced age and cardiac history, would recommend the latter. I have had extensive discussion with family >80 minutes at bedside and we have decided to proceed with IR guided biopsy, followed by neoadjuvant chemotherapy and interval debulking. She stopped aspirin yesterday, would recommend to do Lovenox bridge and get biopsy next week. After which can resume Eliquis during chemotherapy. I will follow up Ms. Grant as an outpatient. Code(s): R18.8 - OTHER ASCITES (2) Pelvic mass Code(s): R19.00 - INTRA-ABD AND PELVIC SWELLING, MASS AND LUMP, UNSP SITE
[2019-06-01] MEDS ORDERED: ENOXAPARIN NA (PORCINE) 100 MG/1 ML DISP.SYRIN SQ ONE (17:30)
== END 2019-06-01 18:54 | disposition home or self-care (01) | DRG 755 ==
LOC: JER 12:21 → JERBED 18:37 → J4W 23:01
PROVIDERS: ADMIT Family Medicine; ATTEND Family Medicine
PROC: 30233N1 Transfusion of Nonautologous Red Blood Cells into Peripheral Vein, Percutaneous Approach (ICD-10-PCS; principal; 2019-05-29)
DX: C56.9 Malignant neoplasm of unspecified ovary (principal); N17.9 Acute kidney failure, unspecified; J98.11 Atelectasis; I50.30 Unspecified diastolic (congestive) heart failure; R18.8 Other ascites; I13.0 Hypertensive heart and chronic kidney disease with heart failure and stage 1 through stage 4 chronic kidney disease, or unspecified chronic kidney disease; E03.9 Hypothyroidism, unspecified; R14.0 Abdominal distension (gaseous); D64.9 Anemia, unspecified; I25.10 Atherosclerotic heart disease of native coronary artery without angina pectoris; I48.91 Unspecified atrial fibrillation; E87.5 Hyperkalemia; N18.9 Chronic kidney disease, unspecified; C54.1 Malignant neoplasm of endometrium; E11.9 Type 2 diabetes mellitus without complications; E66.9 Obesity, unspecified; Z68.37 Body mass index [BMI] 37.0-37.9, adult
CPT/HCPCS: 36415; 36430; 36511; 71045-TC-FY; 71250-TC; 74174-TC; 76830-TC; 80048; 80053; 81003; 82272; 82378; 82550; 83036; 83605; 83690; 83735; 83880; 84100; 84436; 84443; 84484; 85025; 85027; 85610; 85730; 86304; 86850; 86900; 86901; 86922; 87077; 87086; 93005; 93010; 93306-TC; 99285-25; J0131; J7030; P9038; P9058

== ENCOUNTER 2019-06-13 16:29 | Inpatient (IN) | payer OTHER | END 2019-06-18 15:15 | disposition home or self-care (01) | LOC: JSAMEDAYSX 06-14 08:19 → J6S 06-14 08:21 → JER 16:29 → JERBED 18:58 → J6S 21:28 ==